=== PATIENT | female | born 1940 | race Caucasian/White ===

== ENCOUNTER → 2017-02-28 | Outpatient (CLI) | payer MEDICARE, BC ==
--- NOTE | 2017-02-28 14:31 | MM ---
Reason for exam: clinical finding. Last mammogram was performed 8 months ago. History: Patient is postmenopausal. Family history of premenopausal breast cancer in sister at age 47. Benign US breast aspiration single LT of the left breast, July 22, 2014. Benign right mammotome panel of the right breast, April 09, 2009. Benign excisional biopsy of the left breast, 1989. Physical Findings: Nurse Summary: 0.5cm nodule in the right breast at 9 o'clock (nurse dw). MG 3D Diag Mammo W/Cad RODOLFO Bilateral CC and MLO view(s) were taken. Prior study comparison: June 26, 2016, bilateral MG screening mammo w CAD. June 24, 2015, bilateral MG diagnostic mammo w CAD RODOLFO. January 04, 2015, bilateral MG diagnostic mammo w CAD RODOLFO. December 26, 2013, bilateral digital screening mammo w/CAD. November 30, 2012, bilateral digital screening mammo w/CAD. There are scattered fibroglandular densities. Previous mammotome biopsy in the right and left breast. There is chronic nodularity in the left breast. There is no discrete abnormality. Palpable marker lateral right periareolar region. These results were verbally communicated with the patient and result sheet given to the patient on 02/28/17. ASSESSMENT: Incomplete: need additional imaging evaluation, BI-RAD 0 RECOMMENDATION: Ultrasound of the right breast.
--- NOTE | 2017-02-28 14:44 | USB ---
Reason for exam: additional evaluation requested from abnormal screening. History: Patient is postmenopausal. Family history of premenopausal breast cancer in sister at age 47. Benign US breast aspiration single LT of the left breast, July 22, 2014. Benign right mammotome panel of the right breast, April 09, 2009. Benign excisional biopsy of the left breast, 1989. US Breast Limited RT Right breast ultrasound demonstrates a 3 x 2 x 3mm oval lesion too small to characterize at 9 o'clock and a 8 x 5 x 7mm irregular, solid, hypoechoic lesion at the posterior nipple. This is towards the 12 o'clock position. Given the patients bloody nipple discharge, biopsy is recommended. These results were verbally communicated with the patient and result sheet given to the patient on 02/28/17. ASSESSMENT: Suspicious, BI-RAD 4 RECOMMENDATION: Surgical consultation and ultrasound core biopsy of the right breast. Consideration can be given to ductogram or MRI in the future if there is occurrence of bloody/clear spontaneous discharge localized to a single pore on the nipple. Called Dr. Martin with mammographic findings. Patient to call on 03/01/17 for appointment time. PRELIMINARY REPORT CALLED AND FAXED TO DR. MARTIN ON 02/28/17 AT 300/TP. [facility]
== END | disposition home or self-care (01) ==
LOC: RADMAMWWP 12:31
PROVIDERS: ATTEND Surgery
DX: R92.8 Other abnormal and inconclusive findings on diagnostic imaging of breast (principal)
CPT/HCPCS: 76642; G0204; G0279

== ENCOUNTER → 2017-03-13 | Day surgery (SDC) | payer MEDICARE, BC ==
[~2017-03-13] MED LIST: ALPRAZolam 0.25 MG TAB ONE; BACITRACIN OINT 1 EACH PACKET TOPICAL ONE; LIDOCAINE 1% INJ 10MG/ML (20 ML MDV) ONE
--- NOTE | 2017-03-13 10:50 | USB ---
EXAMINATION TYPE: US biopsy breast VAD RT DATE OF EXAM: 03/13/2017 10:17 AM CLINICAL HISTORY: R92.8 Abn mammogram. TECHNIQUE: Ultrasound guided core biopsy of right breast. COMPARISON: 02/28/2017 FINDINGS: The procedure of ultrasound guided core biopsy was explained to the patient. Benefits, alternatives, and risks were discussed. An informed consent was then obtained. The patient was placed in supine positioning for imaging and for the procedure. The overlying skin was prepped and draped in usual sterile fashion. Lidocaine buffered with bicarbonate was used as anesthetic into the skin and subcutaneous tissue up to area of concern in the right breast. A yessica was made with surgical scalpel. Under ultrasound guidance, a 12-gauge vacuum assisted biopsy gun device was used to obtain 6 core samples. Following this, a biopsy clip was left in lesion. Some minimal bleeding was evident on ultrasound. Pressure was maintained for hemostasis. No obvious hematoma completion of the examination of hematoma identified on mammogram. The patient tolerated the procedure well without any immediate complication. The patient was kept in the radiology department for short stay after the procedure and then discharged home in stable condition. Postprocedure mammogram was obtained. Clip is in the subareolar region. A second prior study core marker is present IMPRESSION: Successful, uncomplicated ultrasound guided core biopsy of area of concern in the right breast, full pathology results to follow. 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 Recommendation Surgical consult of the right breast. RAYO
--- NOTE | 2017-03-13 10:52 | MM ---
Post procedure mammogram INDICATION: Prior abnormal mammogram and ultrasound Following the completion of the ultrasound core biopsy the patient was sent for mammography for clip placement. Clip is within the subareolar right breast. A previous core marker is within the posterior right [facility]. No large hematomas evident. IMPRESSIONS: 1. Post procedure mammogram for clip placement Recommendations: 1. Recommendations are pending pathology results.
== END ==
LOC: RADUSWWP 06:41
PROVIDERS: ATTEND Surgery
DX: C50.911 Malignant neoplasm of unspecified site of right female breast (principal); R92.8 Other abnormal and inconclusive findings on diagnostic imaging of breast; Z88.1 Allergy status to other antibiotic agents; Z88.8 Allergy status to other drugs, medicaments and biological substances; Z91.09 Other allergy status, other than to drugs and biological substances
CPT/HCPCS: 88305; 88342; 88341; 19083; G0206; A4648; J2001

== ENCOUNTER 2017-03-25 08:58 | Emergency (ER) | payer MEDICARE, BC ==
[2017-03-25] MEDS ORDERED: SODIUM CHLORIDE 0.9% 1,000 ML IV STA (09:25)
[2017-03-25] MEDS ORDERED: ONDANSETRON 4 MG/2 ML VIAL IVP STA (09:26)
--- NOTE | 2017-03-25 09:30 | ED ---
General Adult HPI - General Chief complaint: Abdominal Pain Stated complaint: Right side flank Pain Time Seen by Provider: 03/25/17 09:11 Source: patient, EMS, RN notes reviewed Mode of arrival: EMS - History of Present Illness Initial comments: Patient 77-year-old female who presents emergency room today by EMS, the chief complaint of increased right sided back and abdominal pain. Patient does admit that she began feeling pain approximately one week ago in her back. She states she thought was just a pulled muscle. She states the last few hours it is greatly increased. She states it seems to radiate into the front of the abdomen and the upper portion. She does admit that it's a sharp pain at times it seems to be worse at times with movements. She denies any other associated symptoms. States she has not had a bowel movement which is not unusual for her. She states she thinks it may be constipation. She denies any other complaint or symptoms. Patient denies any recent fever, chills, shortness of breath, chest pain, nausea or vomiting, numbness or tingling, dysuria or hematuria, diarrhea, headaches or visual changes, or any other complaints. - Related Data Home Medications Medication Instructions Recorded Confirmed Levothyroxine Sodium [Synthroid] 44 mcg PO DAILY 07/25/14 08/16/16 Jaycob/D3/Mag11/Zinc/Systems Security Analyst/Danial/Bor 1 tab PO DAILY 08/15/16 08/16/16 [Caltrate 600+D Plus Tablet] Previous Rx's Medication Instructions Recorded Levofloxacin [Levaquin] 500 mg PO DAILY 7 Days 03/25/17 metroNIDAZOLE [Flagyl] 500 mg PO TID 7 Days 03/25/17 Allergies Allergy/AdvReac Type Severity Reaction Status Date / Time iodine Allergy Unknown Verified 08/16/16 11:19 steroids Allergy Unknown Uncoded 08/16/16 11:19 Review of Systems ROS Statement: Those systems with pertinent positive or pertinent negative responses have been documented in the HPI. ROS Other: All systems not noted in ROS Statement are negative. Past Medical History Past Medical History: Diabetes Mellitus, Hyperlipidemia Additional Past Medical History / Comment(s): STATES UNABLE TO TOLERATE MEDS FOR DIABETES AND CHOLESTEROL. HX OF MENIERE'S History of Any Multi-Drug Resistant Organisms: None Reported Past Surgical History: Cholecystectomy Additional Past Surgical History / Comment(s): RODOLFO. CATARACTS Past Anesthesia/Blood Transfusion Reactions: No Reported Reaction Past Psychological History: No Psychological Hx Reported Smoking Status: Never smoker Past Alcohol Use History: None Reported Past Drug Use History: None Reported - Past Family History Sister(s) Family Medical History: Cancer Additional Family Medical History / Comment(s): breast, Brother(s) Family Medical History: Cancer Additional Family Medical History / Comment(s): lung General Exam - General Exam Comments Initial Comments: General: The patient is awake and alert, in no distress, and does not appear acutely ill. Eye: Pupils are equal, round and reactive to light, extra-ocular movements are intact. No nystagmus. There is normal conjunctiva bilaterally. No signs of icterus. Ears, nose, mouth and throat: There are moist mucous membranes and no oral lesions. Neck: The neck is supple, there is no tenderness or JVD. Cardiovascular: There is a regular rate and rhythm. No murmur, rub or gallop is appreciated. Respiratory: Lungs are clear to auscultation, respirations are non-labored, breath sounds are equal. No wheezes, stridor, rales, or rhonchi. Gastrointestinal: Normal appearance abdomen. Normal bowel sounds. Abdomen soft on palpation. Patient does have tenderness epigastric and right upper quadrants. No CVA tenderness. No guarding. No rebound. Musculoskeletal: Normal ROM, no tenderness. Strength 5/5. Sensation intact. Pulses equal bilaterally 2+. Neurological: A&O x 3. CN II-XII intact, There are no obvious motor or sensory deficits. Coordination appears grossly intact. Speech is normal. Skin: Skin is warm and dry and no rashes or lesions are noted. Psychiatric: Cooperative, appropriate mood & affect, normal judgment. Course Vital Signs 03/25/17 09:00 Temperature 98.7 F Pulse Rate 80 Respiratory 20 Rate Blood Pressure 162/70 O2 Sat by Pulse 94 L Oximetry Medical Decision Making - Medical Decision Making Case discussed in detail with attending physician Dr. Fu. Labs reviewed unremarkable. Patient does admit that these symptoms seem to be consistent with some constipation that she's had in the past. States had similar findings. She does not want any pain medication she's been feeling better here in the emergency room without. Patient's CAT scan of the abdomen performed with no contrast due to an iodine ALLERGY. He does reveal possible pneumonia seen in the lower lung ivey. Patient does admit to some cough congestion. No sign for diverticulitis but patient will be started on antibiotics cover for pneumonia was possible diverticulitis. Patient will be discharged home and advised follow-up family doctor the next 1-2 days. Advised return if any symptoms increase or worsen. She states understanding and is in agreement with this plan - Lab Data Result diagrams: 03/25/17 09:09 03/25/17 09:09 Lab Results 03/25/17 03/25/17 03/25/17 Range/Units 09:09 09:09 09:09 WBC 7.3 (3.8-10.6) k/uL RBC 4.23 (3.80-5.40) m/uL Hgb 12.7 (11.4-16.0) gm/dL Hct 38.6 (34.0-46.0) % MCV 91.4 (80.0-100.0) fL MCH 30.1 (25.0-35.0) pg MCHC 33.0 (31.0-37.0) g/dL RDW 12.9 (11.5-15.5) % Plt Count 209 (150-450) k/uL Neutrophils % 70 % Lymphocytes % 23 % Monocytes % 4 % Eosinophils % 1 % Basophils % 0 % Neutrophils # 5.1 (1.3-7.7) k/uL Lymphocytes # 1.7 (1.0-4.8) k/uL Monocytes # 0.3 (0-1.0) k/uL Eosinophils # 0.1 (0-0.7) k/uL Basophils # 0.0 (0-0.2) k/uL PT (9.0-12.0) sec INR (<1.1) APTT (22.0-30.0) sec Sodium 139 (137-145) mmol/L Potassium 4.3 (3.5-5.1) mmol/L Chloride 105 (98-107) mmol/L Carbon Dioxide 27 (22-30) mmol/L Anion Gap 7 mmol/L BUN 17 (7-17) mg/dL Creatinine 0.60 (0.52-1.04) mg/dL Est GFR (MDRD) Af Amer >60 (>60 ml/min/1.73 sqM) Est GFR (MDRD) Non-Af >60 (>60 ml/min/1.73 sqM) Glucose 200 H (74-99) mg/dL Calcium 8.9 (8.4-10.2) mg/dL Magnesium 1.8 (1.6-2.3) mg/dL Total Bilirubin 0.8 (0.2-1.3) mg/dL AST 18 (14-36) U/L ALT 22 (9-52) U/L Alkaline Phosphatase 104 (38-126) U/L Total Creatine Kinase 86 (30-135) U/L CK-MB (CK-2) 0.7 (0.0-2.4) ng/mL CK-MB (CK-2) Rel Index 0.8 Troponin I <0.012 (0.000-0.034) ng/mL Total Protein 7.2 (6.3-8.2) g/dL Albumin 4.0 (3.5-5.0) g/dL Amylase 51 (30-110) U/L Lipase 86 (23-300) U/L Urine Color Urine Appearance (Clear) Urine pH (5.0-8.0) Ur Specific [place] (1.001-1.035) Urine Protein (Negative) Urine Glucose (UA) (Negative) Urine Ketones (Negative) Urine Blood (Negative) Urine Nitrite (Negative) Urine Bilirubin (Negative) Urine Urobilinogen (<2.0) mg/dL Ur Leukocyte Esterase (Negative) Urine RBC (0-5) /hpf Urine WBC (0-5) /hpf Ur Squamous Epith Cells (0-4) /hpf Urine Mucus (None) /hpf 03/25/17 03/25/17 Range/Units 09:09 11:37 WBC (3.8-10.6) k/uL RBC (3.80-5.40) m/uL Hgb (11.4-16.0) gm/dL Hct (34.0-46.0) % MCV (80.0-100.0) fL MCH (25.0-35.0) pg MCHC (31.0-37.0) g/dL RDW (11.5-15.5) % Plt Count (150-450) k/uL Neutrophils % % Lymphocytes % % Monocytes % % Eosinophils % % Basophils % % Neutrophils # (1.3-7.7) k/uL Lymphocytes # (1.0-4.8) k/uL Monocytes # (0-1.0) k/uL Eosinophils # (0-0.7) k/uL Basophils # (0-0.2) k/uL PT 9.9 (9.0-12.0) sec INR 1.0 (<1.1) APTT 25.0 (22.0-30.0) sec Sodium (137-145) mmol/L Potassium (3.5-5.1) mmol/L Chloride (98-107) mmol/L Carbon Dioxide (22-30) mmol/L Anion Gap mmol/L BUN (7-17) mg/dL Creatinine (0.52-1.04) mg/dL Est GFR (MDRD) Af Amer (>60 ml/min/1.73 sqM) Est GFR (MDRD) Non-Af (>60 ml/min/1.73 sqM) Glucose (74-99) mg/dL Calcium (8.4-10.2) mg/dL Magnesium (1.6-2.3) mg/dL Total Bilirubin (0.2-1.3) mg/dL AST (14-36) U/L ALT (9-52) U/L Alkaline Phosphatase (38-126) U/L Total Creatine Kinase (30-135) U/L CK-MB (CK-2) (0.0-2.4) ng/mL CK-MB (CK-2) Rel Index Troponin I (0.000-0.034) ng/mL Total Protein (6.3-8.2) g/dL Albumin (3.5-5.0) g/dL Amylase (30-110) U/L Lipase (23-300) U/L Urine Color Light Yellow Urine Appearance Clear (Clear) Urine pH 5.0 (5.0-8.0) Ur Specific [place] 1.007 (1.001-1.035) Urine Protein Negative (Negative) Urine Glucose (UA) Negative (Negative) Urine Ketones Negative (Negative) Urine Blood Small H (Negative) Urine Nitrite Negative (Negative) Urine Bilirubin Negative (Negative) Urine Urobilinogen <2.0 (<2.0) mg/dL Ur Leukocyte Esterase Negative (Negative) Urine RBC 1 (0-5) /hpf Urine WBC <1 (0-5) /hpf Ur Squamous Epith Cells <1 (0-4) /hpf Urine Mucus Rare H (None) /hpf Disposition Clinical Impression: Community acquired pneumonia, Abdominal pain Disposition: HOME SELF-CARE Condition: Good Instructions: Abdominal Pain (ED) Additional Instructions: Please use medication as discussed. Please follow-up with family doctor in the next 2 days. Please return to emergency room if the symptoms increase or worsen or for any other concerns. Prescriptions: Levofloxacin [Levaquin] 500 mg PO DAILY 7 Days metroNIDAZOLE [Flagyl] 500 mg PO TID 7 Days Referrals: Marcello Castro MD [Primary Care Provider] - 1-2 days Time of Disposition: 12:08
[2017-03-25] MEDS: HYDROmorphone 1 MG/ML 1 ML SYRINGE IVP STA ×2 (09:34→09:40)
[2017-03-25 09:48] LABS: Basophils % (A) 0 %; CH 29.9; CHCM 32.8; Eosinophils # (A) 0.1 k/uL (0-0.7); Eosinophils % (A) 1 %; HCT 38.6 % (34.0-46.0); HDW 2.51; HGB 12.7 gm/dL (11.4-16.0); Luc # (Auto) 0.11; Luc % (Auto) 2; Lymphocytes # (A) 1.7 k/uL (1.0-4.8); Lymphocytes % (A) 23 %; MCH 30.1 pg (25.0-35.0); MCV 91.4 fL (80.0-100.0); Monocytes # (A) 0.3 k/uL (0-1.0); Monocytes % (A) 4 %; Neutrophils # (A) 5.1 k/uL (1.3-7.7); Neutrophils % (A) 70 %; RBC 4.23 m/uL (3.80-5.40); RDW 12.9 % (11.5-15.5); WBC 7.3 k/uL (3.8-10.6); WBC (Perox) 7.24
[2017-03-25 09:57] LABS: Prothrombin Time 9.9 sec (9.0-12.0)
[2017-03-25 09:58] LABS: ALT 22 U/L (9-52); AST 18 U/L (14-36); Alkaline Phosphatase 104 U/L (38-126); Amylase 51 U/L (30-110); Anion Gap 7 mmol/L; Blood Urea Nitrogen 17 mg/dL (7-17); Calcium 8.9 mg/dL (8.4-10.2); Carbon Dioxide 27 mmol/L (22-30); Chloride 105 mmol/L (98-107); Glucose 200 mg/dL (74-99); Magnesium 1.8 mg/dL (1.6-2.3); Non-African American GFR(MDRD) >60 (>60 ml/min/1.73 sqM); Potassium 4.3 mmol/L (3.5-5.1); Sodium 139 mmol/L (137-145); Total Bilirubin 0.8 mg/dL (0.2-1.3); Total Protein 7.2 g/dL (6.3-8.2)
--- NOTE | 2017-03-25 10:09 | XR ---
EXAMINATION TYPE: XR chest 2V DATE OF EXAM: 03/25/2017 COMPARISON: Prior chest x-ray for September 2014 HISTORY: Chest pain TECHNIQUE: Frontal and lateral views of the chest are obtained. FINDINGS: Patient is rotated, there are overlying cardiac leads. Exam is expiratory. No evident pneu mothorax or pleural effusion. Patchy basilar density is present. Cardiac mediastinal silhouette shows an accentuated heart size which could be due to technique. Pulmonary vascularity and rajeev not signif icantly changed accounting for differences in technique IMPRESSION: Rotated expiratory exam. Basilar atelectasis, follow-up as indicated.
--- NOTE | 2017-03-25 10:10 | XR ---
Abdomen HISTORY: Constipation, right lower quadrant pain, flank pain Frontal view of the abdomen submitted on 2 images. Patchy basilar density present at the lung bases. Surgical clips present in the right upper quadrant. No pneumoperitoneum or bowel obstruction evident. Degenerative disc changes in the visualized lumbar spine. Some retained fecal debris present within the distribution of the colon. IMPRESSION: Nonobstructive bowel gas pattern. Follow-up as indicated.
[2017-03-25 10:21] LABS: Creatine Kinase 86 U/L (30-135)
[2017-03-25 10:33] LABS: Creatine Kinase MB 0.7 ng/mL (0.0-2.4); Troponin I <0.012 ng/mL (0.000-0.034)
--- NOTE | 2017-03-25 11:31 | CT ---
EXAMINATION TYPE: CT abdomen pelvis wo con DATE OF EXAM: 03/25/2017 COMPARISON: Abdomen same date HISTORY: Rt flank pain CT DLP: 429.1 mGycm Automated exposure control for dose reduction was used. TECHNIQUE: Helical acquisition of images from the lung bases through the pelvis. FINDINGS: Lack of intravenous contrast could compromise sensitivity. LUNG BASES: Patchy increased density is present right greater than left, correlate to exclude pneumon ia. There is no pleural or pericardial effusion. Suspect mitral annular calcification. There may be a small hiatal hernia. AORTA: No significant abnormality is appreciated. LIVER/GB: Liver is unremarkable, patient is post cholecystectomy PANCREAS: No significant abnormality is seen. SPLEEN: No significant abnormality is seen. ADRENALS: No significant abnormality is seen. KIDNEYS: No significant abnormality is seen. REPRODUCTIVE ORGANS: No significant abnormality is seen. URINARY BLADDER: No significant abnormality is seen. BOWEL: Diverticular changes associated with the sigmoid colon. Small inguinal hernia shows some asso ciated fluid density measuring 18 mm which is indeterminate in the right inguinal region along the in guinal canal. FREE AIR: No Free Air is visible. ASCITES: None visible. PELVIC ADENOPATHY: None visualized. RETROPERITONEAL ADENOPATHY: No Retroperitoneal Adenopathy visible. OSSEOUS STRUCTURES: Degenerative disc changes are present in the visualized spine. There is facet ar thropathy at the lower lumbar spine. IMPRESSION: RIGHT INGUINAL HERNIA, SMALL AMOUNT OF FLUID MAY BE PRESENT ALONG THE INGUINAL CANAL. NONCONTRAST EXA M. POSTOP CHANGES. CORRELATE TO EXCLUDE PNEUMONIA. SMALL HIATAL HERNIA. DIVERTICULOSIS. FOLLOW-UP INDICATED.
[2017-03-25 12:08] LABS: Appearance,Urine Clear (Clear); Bilirubin,Urine Negative (Negative); Glucose,Urine (UA) Negative (Negative); Ketones,Urine Negative (Negative); Leukocyte Esterase,Urine Negative (Negative); Mucus,Urine Rare /hpf; Nitrite,Urine Negative (Negative); Particle Count 1796; Protein,Urine Negative (Negative); RBC,Urine 1 /hpf (0-5); Specific Gravity,Urine 1.007 (1.001-1.035); Squamous Epithelial Cell,Urine <1 /hpf (0-4); UA Billing (MACRO vs. MICRO) MICRO; Urobilinogen,Urine <2.0 mg/dL (<2.0); WBC,Urine <1 /hpf (0-5)
[2017-03-25] MEDS ORDERED: MAGNESIUM CITRATE 296 ML BOTTLE PO ONE (12:19)
[2017-03-25 12:34] VITALS: BP 157/63; PULSE 58; RESP 16; TEMP 97.5
== END 2017-03-25 12:41 | disposition home or self-care (01) ==
LOC: EC 08:58
DX: J18.9 Pneumonia, unspecified organism (principal); R10.11 Right upper quadrant pain; R10.13 Epigastric pain; Z53.20 Procedure and treatment not carried out because of patient's decision for unspecified reasons; Z79.899 Other long term (current) drug therapy; Z88.8 Allergy status to other drugs, medicaments and biological substances; Z90.49 Acquired absence of other specified parts of digestive tract
CPT/HCPCS: 36415; 71020; 74000; 74176; 80053; 81001; 82150; 82550; 82553; 83690; 83735; 84484; 85025; 85610; 85730; 93005; 96360; 99285

== ENCOUNTER → 2017-04-02 | Outpatient (CLI) | payer MEDICARE, BC ==
--- NOTE | 2017-04-02 10:39 | XR ---
EXAMINATION TYPE: XR chest 2V DATE OF EXAM: 04/02/2017 HISTORY: J18.9 pneumonia. REFERENCE: Previous study dated 03/25/2017. FINDINGS: The lungs are clear. Pleural spaces are clear. The heart is not enlarged. There is hypertrophic spondylosis within the spine. IMPRESSION: NO ACTIVE INTRATHORACIC ABNORMALITY.
== END | disposition home or self-care (01) ==
LOC: RADXRMAIN 10:20
PROVIDERS: ATTEND Internal Medicine
DX: J18.9 Pneumonia, unspecified organism (principal)
CPT/HCPCS: 71020

== ENCOUNTER → 2017-11-05 | Outpatient (CLI) | payer MEDICARE, BC ==
--- NOTE | 2017-11-05 12:08 | MM ---
Reason for exam: follow-up at short interval from prior study. Last mammogram was performed 8 months ago. History: Patient is postmenopausal and has history of breast cancer at age 77. Family history of premenopausal breast cancer in sister at age 47. Malignant US biopsy breast VAD RT of the right breast, March 13, 2017. Benign US breast aspiration single LT of the left breast, July 22, 2014. Benign right mammotome panel of the right breast, April 09, 2009. Benign excisional biopsy of the left breast, 1989. Physical Findings: Nurse did not find any significant physical abnormalities on exam. MG 3D Diag Mammo W/Cad RODOLFO Bilateral CC and MLO view(s) were taken. Prior study comparison: March 13, 2017, right breast MG diagnostic mammo RT wo CAD. February 28, 2017, bilateral MG 3d diag mammo w/cad RODOLFO. June 26, 2016, bilateral MG screening mammo w CAD. June 24, 2015, bilateral MG diagnostic mammo w CAD RODOLFO. The breast tissue is heterogeneously dense. This may lower the sensitivity of mammography. There are benign appearing round, oval, circumscribed bilateral masses similar to 2016 exam, right contains biopsy marker. No suspicious abnormality. Post therapy change on the right breast. These results were verbally communicated with the patient and result sheet given to the patient on 11/05/17. ASSESSMENT: Benign, BI-RAD 2 RECOMMENDATION: Routine screening mammogram of both breasts in 1 year.
== END | disposition home or self-care (01) ==
LOC: RADMAMWWP 09:58
PROVIDERS: ATTEND Internal Medicine
DX: Z08 Encounter for follow-up examination after completed treatment for malignant neoplasm (principal); Z85.3 Personal history of malignant neoplasm of breast
CPT/HCPCS: 77066; G0279

== ENCOUNTER → 2017-12-17 | Outpatient (CLI) | payer MEDICARE, BC | END | disposition home or self-care (01) | LOC: LABPRL 14:43 | PROVIDERS: ATTEND Nurse Practitioner Family | DX: R19.7 Diarrhea, unspecified (principal) | CPT/HCPCS: 87045; 87046; 87324; 87328; 87329 ==

== ENCOUNTER 2018-03-29 17:28 | Inpatient (IN) | payer MEDICARE, BC ==
[2018-03-29] MEDS ORDERED: ONDANSETRON 4 MG/2 ML VIAL IVP STA ×2 (17:54→18:40)
[2018-03-29] MEDS ORDERED: MECLIZINE 12.5 MG TAB PO STA (17:54)
[2018-03-29 17:55] LABS: Glucose,Whole Blood 139 mg/dL (75-99)
--- NOTE | 2018-03-29 18:01 | ED ---
General Adult HPI - General Chief complaint: Dizziness Stated complaint: Dizzy/Headache Time Seen by Provider: 03/29/18 17:48 Source: patient, RN notes reviewed, old records reviewed Mode of arrival: wheelchair Limitations: no limitations - History of Present Illness Initial comments: 78-year-old female history of Mnire's disease presents for evaluation of lightheadedness, vertigo, and nausea. She has several episodes vomiting. Denies tinnitus. Denies recent URI symptoms. Symptoms began approximately 4 PM. She denies any new pain or fullness. Denies any recent URI symptoms. Denies chest pain or shortness of breath. Denies any focal weakness or numbness. Denies abdominal pain, she does have nausea. Patient states her symptoms are different from her Mnire's disease. She also reports mild headache.. She feels as though she is going to fall to the left. She did report some gait instability. - Related Data Home Medications Medication Instructions Recorded Confirmed Levothyroxine Sodium [Synthroid] 88 mcg PO DAILY 07/25/14 03/29/18 Jaycob/D3/Mag11/Zinc/Syrup Blender/Danial/Bor 1 tab PO DAILY 08/15/16 03/29/18 [Caltrate 600+D Plus Tablet] Glimepiride [Amaryl] 2 mg PO BID 03/29/18 03/29/18 Repaglinide [Prandin] 0.5 mg PO AC-TID 03/29/18 03/29/18 Allergies Allergy/AdvReac Type Severity Reaction Status Date / Time iodine Allergy Unknown Verified 03/29/18 19:02 steroids Allergy Unknown Uncoded 03/29/18 17:44 Review of Systems ROS Statement: Those systems with pertinent positive or pertinent negative responses have been documented in the HPI. ROS Other: All systems not noted in ROS Statement are negative. Past Medical History Past Medical History: Diabetes Mellitus, Hyperlipidemia Additional Past Medical History / Comment(s): STATES UNABLE TO TOLERATE MEDS FOR DIABETES AND CHOLESTEROL. HX OF MENIERE'S History of Any Multi-Drug Resistant Organisms: None Reported Past Surgical History: Cholecystectomy Additional Past Surgical History / Comment(s): RODOLFO. CATARACTS Past Anesthesia/Blood Transfusion Reactions: No Reported Reaction Past Psychological History: No Psychological Hx Reported Smoking Status: Never smoker Past Alcohol Use History: None Reported Past Drug Use History: None Reported - Past Family History Sister(s) Family Medical History: Cancer Additional Family Medical History / Comment(s): breast, Brother(s) Family Medical History: Cancer Additional Family Medical History / Comment(s): lung General Exam Limitations: no limitations General appearance: alert, in no apparent distress Head exam: Present: atraumatic, normocephalic Eye exam: Present: normal appearance, PERRL, EOMI. Absent: nystagmus ENT exam: Present: normal exam. Absent: mucous membranes dry Neck exam: Present: normal inspection. Absent: tenderness, meningismus Respiratory exam: Present: normal lung sounds bilaterally. Absent: respiratory distress Cardiovascular Exam: Present: regular rate, normal rhythm GI/Abdominal exam: Present: soft. Absent: distended, tenderness Extremities exam: Present: normal inspection, normal capillary refill. Absent: pedal edema Neurological exam: Present: alert, oriented X3, CN II-XII intact, other ( there is bilateral upper extremity tremor, finger to nose is normal, [id number] normal). Absent: motor sensory deficit Skin exam: Present: warm, dry, intact. Absent: cyanosis, diaphoretic Course Vital Signs 03/29/18 03/29/18 17:39 19:05 Temperature 98.7 F Pulse Rate 67 64 Respiratory 20 18 Rate Blood Pressure 188/87 193/82 O2 Sat by Pulse 99 96 Oximetry EKG Findings - EKG Comments: EKG Findings:: EKG: Normal sinus rhythm, rate of 65, NM interval 190, QRS duration 94, QTC 422 Medical Decision Making - Medical Decision Making 78-year-old female presenting with symptoms of vertigo. Patient does report a sensation she is falling to the left. She is initially very uncomfortable, vomiting. History of Mnire's disease although she states this is dissimilar to her previous vertigo. She hasn't baseline tremor of the upper extremities, no noted ataxia on exam. Head CT is obtained which is negative for intracranial hemorrhage or mass effect. Laboratory studies are within normal limits. Patient remains quite symptomatic with nausea and vomiting. Blood pressure is elevated and patient does not have history of hypertension. There is concern for posterior stroke. CT angiography is obtained at the recommendation of Dr. Arechiga. This is pending currently. Case discussed with Dr. Arechiga who will accept admission. Neurology will be placed on consult. Patient is given an aspirin. Diagnosis: Vertigo - Lab Data Result diagrams: 03/29/18 18:14 03/29/18 18:14 Lab Results 03/29/18 03/29/18 03/29/18 Range/Units 17:54 18:14 18:14 WBC 7.7 (3.8-10.6) k/uL RBC 4.58 (3.80-5.40) m/uL Hgb 13.4 (11.4-16.0) gm/dL Hct 40.1 (34.0-46.0) % MCV 87.5 (80.0-100.0) fL MCH 29.3 (25.0-35.0) pg MCHC 33.4 (31.0-37.0) g/dL RDW 12.8 (11.5-15.5) % Plt Count 201 (150-450) k/uL Neutrophils % 63 % Lymphocytes % 28 % Monocytes % 5 % Eosinophils % 1 % Basophils % 0 % Neutrophils # 4.8 (1.3-7.7) k/uL Lymphocytes # 2.2 (1.0-4.8) k/uL Monocytes # 0.4 (0-1.0) k/uL Eosinophils # 0.1 (0-0.7) k/uL Basophils # 0.0 (0-0.2) k/uL PT (9.0-12.0) sec INR (<1.2) Sodium 141 (137-145) mmol/L Potassium 4.6 (3.5-5.1) mmol/L Chloride 104 (98-107) mmol/L Carbon Dioxide 26 (22-30) mmol/L Anion Gap 11 mmol/L BUN 18 H (7-17) mg/dL Creatinine 0.60 (0.52-1.04) mg/dL Est GFR (CKD-EPI)AfAm >90 (>60 ml/min/1.73 sqM) Est GFR (CKD-EPI)NonAf 87 (>60 ml/min/1.73 sqM) Glucose 140 H (74-99) mg/dL POC Glucose (mg/dL) 139 H (75-99) mg/dL POC Glu Registered Private Duty Nurse ID D[place]more, Antionette Plasma Lactic Acid Elias (0.7-2.0) mmol/L Calcium 10.0 (8.4-10.2) mg/dL Total Bilirubin 0.5 (0.2-1.3) mg/dL AST 23 (14-36) U/L ALT 22 (9-52) U/L Alkaline Phosphatase 87 (38-126) U/L Troponin I (0.000-0.034) ng/mL Total Protein 7.3 (6.3-8.2) g/dL Albumin 4.2 (3.5-5.0) g/dL 03/29/18 03/29/18 03/29/18 Range/Units 18:14 18:14 18:14 WBC (3.8-10.6) k/uL RBC (3.80-5.40) m/uL Hgb (11.4-16.0) gm/dL Hct (34.0-46.0) % MCV (80.0-100.0) fL MCH (25.0-35.0) pg MCHC (31.0-37.0) g/dL RDW (11.5-15.5) % Plt Count (150-450) k/uL Neutrophils % % Lymphocytes % % Monocytes % % Eosinophils % % Basophils % % Neutrophils # (1.3-7.7) k/uL Lymphocytes # (1.0-4.8) k/uL Monocytes # (0-1.0) k/uL Eosinophils # (0-0.7) k/uL Basophils # (0-0.2) k/uL PT 10.0 (9.0-12.0) sec INR 1.0 (<1.2) Sodium (137-145) mmol/L Potassium (3.5-5.1) mmol/L Chloride (98-107) mmol/L Carbon Dioxide (22-30) mmol/L Anion Gap mmol/L BUN (7-17) mg/dL Creatinine (0.52-1.04) mg/dL Est GFR (CKD-EPI)AfAm (>60 ml/min/1.73 sqM) Est GFR (CKD-EPI)NonAf (>60 ml/min/1.73 sqM) Glucose (74-99) mg/dL POC Glucose (mg/dL) (75-99) mg/dL POC Glu Registered Private Duty Nurse ID Plasma Lactic Acid Elias 0.7 (0.7-2.0) mmol/L Calcium (8.4-10.2) mg/dL Total Bilirubin (0.2-1.3) mg/dL AST (14-36) U/L ALT (9-52) U/L Alkaline Phosphatase (38-126) U/L Troponin I <0.012 (0.000-0.034) ng/mL Total Protein (6.3-8.2) g/dL Albumin (3.5-5.0) g/dL Disposition Clinical Impression: Meniere's disease, Vertigo Disposition: ADMITTED IP TO THIS HOSP Condition: Stable Is patient prescribed a controlled substance at d/c from ED?: No Referrals: Gauri Caballero MD [Primary Care Provider] - 1-2 days Decision to Admit Reason: Admit from EC Decision Date: 03/29/18 Decision Time: 21:24
[2018-03-29 18:35] LABS: ALT 22 U/L (9-52); AST 23 U/L (14-36); Albumin 4.2 g/dL (3.5-5.0); Alkaline Phosphatase 87 U/L (38-126); Anion Gap 11 mmol/L; Blood Urea Nitrogen 18 mg/dL (7-17); Carbon Dioxide 26 mmol/L (22-30); Chloride 104 mmol/L (98-107); Glucose 140 mg/dL (74-99); Potassium 4.6 mmol/L (3.5-5.1); Sodium 141 mmol/L (137-145); Total Bilirubin 0.5 mg/dL (0.2-1.3); Total Protein 7.3 g/dL (6.3-8.2)
[2018-03-29] MEDS ORDERED: LORazepam 2 MG/ML INJ IV STA (18:40)
[2018-03-29 18:44] LABS: Basophils % (A) 0 %; Eosinophils # (A) 0.1 k/uL (0-0.7); Eosinophils % (A) 1 %; HCT 40.1 % (34.0-46.0); HGB 13.4 gm/dL (11.4-16.0); Lymphocytes # (A) 2.2 k/uL (1.0-4.8); Lymphocytes % (A) 28 %; MCH 29.3 pg (25.0-35.0); MCHC 33.4 g/dL (31.0-37.0); MCV 87.5 fL (80.0-100.0); Mean Platelet Volume 6.9; Monocytes # (A) 0.4 k/uL (0-1.0); Monocytes % (A) 5 %; Neutrophils # (A) 4.8 k/uL (1.3-7.7); Neutrophils % (A) 63 %; Platelet Count 201 k/uL (150-450); RBC 4.58 m/uL (3.80-5.40); RDW 12.8 % (11.5-15.5); WBC 7.7 k/uL (3.8-10.6)
--- NOTE | 2018-03-29 19:07 | XR ---
EXAMINATION TYPE: XR chest 2V DATE OF EXAM: 03/29/2018 COMPARISON: Chest x-ray April 02, 2017 HISTORY: Syncope and weakness. TECHNIQUE: Frontal and lateral views of the chest are obtained. FINDINGS: There is some chronic parenchymal change with patchy left basilar atelectasis and/or infil trate. No large pleural effusion or pneumothorax is seen bilaterally. The cardiac silhouette size is upper limits of normal with atherosclerotic aorta. Multilevel spurring in the spine is present. Chol ecystectomy clips are seen. IMPRESSION: Patchy left basilar atelectasis and/or infiltrate.
--- NOTE | 2018-03-29 19:08 | CT ---
EXAMINATION TYPE: CT brain wo con DATE OF EXAM: 03/29/2018 HISTORY: DIZZINESS AND NAUSEA CT DLP: 1079 mGycm. Automated Exposure Control for Dose Reduction was Utilized. TECHNIQUE: CT scan of the head is performed without contrast. COMPARISON: None. FINDINGS: There is no acute intracranial hemorrhage or midline shift identified. There is diffuse v entricular and sulcal prominence consistent with diffuse age-related cerebral atrophy. Garza-white mat ter differentiation is fairly well preserved. Neither lens is well seen. Visualized paranasal sinuses are clear. No suspicious opacification mastoid air cells is present IMPRESSION: No acute intracranial hemorrhage or midline shift. There is mild diffuse age-related ce rebral atrophy noted.
[2018-03-29] MEDS ORDERED: ASPIRIN 325 MG TAB PO STA (21:02)
[2018-03-29] MEDS ORDERED: NALOXONE 0.4 MG/ML 1 ML VIAL IV PRN (21:27)
[2018-03-29] MEDS ORDERED: amLODIPine 5 MG TAB PO STA (21:29)
[2018-03-29] MEDS ORDERED: diphenhydrAMINE 50 MG/ML 1 ML VIAL IVP STA (21:30)
[2018-03-29] MEDS ORDERED: FAMOTIDINE 20 MG/2 ML VIAL IV STA (21:30)
[2018-03-29] MEDS ORDERED: methylPREDNISolone SOD SUCCI 125 MG/2 ML VIAL IV STA (21:30)
[2018-03-29] MEDS ORDERED: SODIUM CHLORIDE 0.9% 500 ML IV ONE (22:04)
--- NOTE | 2018-03-29 22:26 | CT ---
EXAM: CT Angiography Head With Intravenous Contrast CLINICAL HISTORY: Pain TECHNIQUE: Axial computed tomographic angiography images of the head with intravenous contrast using CT angiography protocol. CTDI is 6.5, 69.3, 6. 2 mGy and DLP is 243.9 mGy-cm. This CT exam was performed using one or more of the following dose reduction techniques: automated exposure control, adjustment of the mA and/or kV according to patient size, and/or use of iterative reconstruction technique. MIP reconstructed images were created and reviewed. COMPARISON: No relevant prior studies available. FINDINGS: HEAD: Right anterior cerebral artery: Unremarkable. No occlusion or significant stenosis. No aneurysm. Right middle cerebral artery: Unremarkable. No occlusion or significant stenosis. No aneurysm. Right posterior cerebral artery: Unremarkable. No occlusion or significant stenosis. No aneurysm. Left anterior cerebral artery: Unremarkable. No occlusion or significant stenosis. No aneurysm. Left middle cerebral artery: Unremarkable. No occlusion or significant stenosis. No aneurysm. Left posterior cerebral artery: Unremarkable. No occlusion or significant stenosis. No aneurysm. Basilar artery: Unremarkable. No occlusion or significant stenosis. No aneurysm. CAROTID STENOSIS REFERENCE USING NASCET CRITERIA: % ICA stenosis = (1 - narrowest ICA diameter/diameter of distal cervical ICA) x 100. Mild - <50% stenosis. Moderate - 50-69% stenosis. Severe - 70-94% stenosis. Near occlusion - 95-99% stenosis. Occluded - 100% stenosis. IMPRESSION: No acute findings in the arteries of the head. EXAM: CT Angiography Neck With Intravenous Contrast CLINICAL HISTORY: Pain TECHNIQUE: Axial computed tomographic angiography images of the neck with intravenous contrast using CT angiography protocol. CTDI is 6.5, 69.3, 6. 2 mGy and DLP is 243.9 mGy-cm. This CT exam was performed using one or more of the following dose reduction techniques: automated exposure control, adjustment of the mA and/or kV according to patient size, and/or use of iterative reconstruction technique. MIP reconstructed images were created and reviewed. COMPARISON: No relevant prior studies available. FINDINGS: VASCULATURE: Right common carotid artery: Unremarkable. No significant stenosis. No dissection or occlusion. Right internal carotid artery: Unremarkable. Extracranial segment is patent with no significant stenosis. No dissection or occlusion. Right external carotid artery: Unremarkable. No occlusion. Right vertebral artery: Unremarkable. No significant stenosis. No dissection or occlusion. Left common carotid artery: Minimal calcific atherosclerotic disease. No significant stenosis. No dissection or occlusion. Left internal carotid artery: Unremarkable. Extracranial segment is patent with no significant stenosis. No dissection or occlusion. Left external carotid artery: Unremarkable. No occlusion. Left vertebral artery: Unremarkable. No significant stenosis. No dissection or occlusion. NECK: Bones/joints: No acute fracture. No dislocation. Soft tissues: Unremarkable as visualized. No mass. CAROTID STENOSIS REFERENCE USING NASCET CRITERIA: % ICA stenosis = (1 - narrowest ICA diameter/diameter of distal cervical ICA) x 100. Mild - <50% stenosis. Moderate - 50-69% stenosis. Severe - 70-94% stenosis. Near occlusion - 95-99% stenosis. Occluded - 100% stenosis. IMPRESSION: Normal neck CTA.
[2018-03-29] MEDS ORDERED: hydrALAZINE HCL 20 MG/ML 1 ML VIAL IVP STA (22:30)
[2018-03-29 23:51] VITALS: BMI 25.6
[2018-03-29] MEDS: SODIUM CHLORIDE 0.9% 1,000 ML IV SCH (23:56)
[2018-03-30] MEDS ORDERED: hydrALAZINE HCL 20 MG/ML 1 ML VIAL ONE (00:04)
[2018-03-30 00:08] LABS: Glucose,Whole Blood 213 mg/dL (75-99)
[2018-03-30 00:42] LABS: Appearance,Urine Clear (Clear); Bilirubin,Urine Negative (Negative); Blood,Urine Negative (Negative); Color,Urine Colorless; Glucose,Urine (UA) Negative (Negative); Ketones,Urine Negative (Negative); Leukocyte Esterase,Urine Negative (Negative); Nitrite,Urine Negative (Negative); Protein,Urine Negative (Negative); Specific Gravity,Urine 1.006 (1.001-1.035); Urobilinogen,Urine <2.0 mg/dL (<2.0)
[2018-03-30 06:20] LABS: Glucose,Whole Blood 281 mg/dL (75-99)
[2018-03-30] MEDS: INSULIN ASPART 100 UNIT/ML 1 ML 10 ML VIAL SQ SCH ×4 (06:25→21:32)
[2018-03-30] MEDS: ASPIRIN 325 MG TAB PO SCH (08:07)
[2018-03-30] MEDS: amLODIPine 5 MG TAB PO SCH (08:07)
[2018-03-30 11:41] LABS: Glucose,Whole Blood 365 mg/dL (75-99)
[2018-03-30] MEDS: SODIUM CHLORIDE 0.9% 1,000 ML IV SCH (12:08)
[2018-03-30] MEDS: GLIMEPIRIDE 2 MG TAB PO SCH ×2 (12:20→17:24)
[2018-03-30] MEDS: REPAGLINIDE 1 MG TAB PO SCH ×2 (12:20→17:24)
[2018-03-30] MEDS: LEVOTHYROXINE 88 MCG TAB PO SCH (12:20)
[2018-03-30 13:44] LABS: Hemoglobin A1C 8.4 % (4.0-6.0)
[2018-03-30] MEDS ORDERED: methylPREDNISolone SOD SUCCI 40 MG/ML 1 ML VIAL IV STA (15:11)
[2018-03-30] MEDS ORDERED: MECLIZINE 12.5 MG TAB PO PRN (15:13)
[2018-03-30 15:19] LABS: Glucose,Whole Blood 353 mg/dL (75-99)
[2018-03-30] MEDS ORDERED: DIAZEPAM 5 MG TAB PO PRN (15:39)
[2018-03-30 16:56] LABS: Glucose,Whole Blood 304 mg/dL (75-99)
--- NOTE | 2018-03-30 17:40 | P.CNNES ---
History of Present Illness Consult date: 03/30/18 Reason for Consult: Patient admitted with dizziness and posterior circulation TIA. History of Present Illness: This patient is a 78-year-old right-handed white female who has a long-standing history of Mnire's disease and diabetes mellitus. Apparently in the last 2 days she has been having symptoms of disequilibrium and difficulty with ambulation. She states that this is different from her typical Mnire's disease which has been under fairly good control over the years. She was diagnosed with Mnire's disease about 5 years ago. She is not on any specific medication or treatment. Apparently her symptoms began yesterday afternoon and did not seem to improve. She had difficulty with her balance and just could not ambulate due to the sudden onset of disequilibrium. According to her who was able to assist her and also noted that she had some left-sided facial droop. There was no slurring of her speech or headaches reported during the event. It is unclear how long the facial droop lasted but the patient thinks it was only for short period of time. When the patient stood up and tried to ambulate she felt as if she was being pulled to her left side. She describes this more as a sense of balance rather than weakness on her left arm and leg. She did have only mild headache but family was concerned and decided to bring her to the emergency room yesterday for further evaluation. She was seen in the ER by Dr. Hay. She continued to experience vertigo and dizziness which she describes more of a sense of dysequilibrium rather than true vertigo. Her speech was clear in the ER. She does have history of diabetes mellitus and apparently her blood sugars have been up and down. She states her most recent hemoglobin A1c was 7.8. The patient was evaluated in the ER by Dr. Hay. She was sent for a computed tomography scan of the brain which revealed no acute intracranial hemorrhage or midline shift. There was mild diffuse age-related atrophy noted. Patient also underwent a CTA angiogram of the head and neck which was reported negative for any significant stenosis. Patient states that typically when she experiencing her Mnire's symptoms it is usually associated with tinnitus. She usually describes this as a true spinning sensation. Her symptoms yesterday were more consistent with dysequilibrium and balance difficulties with her gait. The patient does not take aspirin on any regular basis. She denies any previous history of TIA or stroke. She is now been admitted and neurology has been consulted for further evaluation and recommendations. Review of Systems Constitutional: Denies chills, Denies fever Eyes: denies blurred vision, denies pain Ears, nose, mouth and throat: Denies headache, Denies sore throat Cardiovascular: Denies chest pain, Denies shortness of breath Respiratory: Denies cough Gastrointestinal: Denies abdominal pain, Denies diarrhea, Denies nausea, Denies vomiting Musculoskeletal: Denies myalgias Integumentary: Denies pruritus, Denies rash Neurological: Reports gait dysfunction, Reports vertigo, Denies numbness, Denies weakness Psychiatric: Denies anxiety, Denies depression Endocrine: Denies fatigue, Denies weight change Past Medical History Past Medical History: Diabetes Mellitus, Hyperlipidemia Additional Past Medical History / Comment(s): STATES UNABLE TO TOLERATE MEDS FOR DIABETES AND CHOLESTEROL. HX OF MENIERE'S History of Any Multi-Drug Resistant Organisms: None Reported Past Surgical History: Cholecystectomy Additional Past Surgical History / Comment(s): RODOLFO. CATARACTS Past Anesthesia/Blood Transfusion Reactions: No Reported Reaction Past Psychological History: No Psychological Hx Reported Smoking Status: Never smoker Past Alcohol Use History: None Reported Past Drug Use History: None Reported - Past Family History Sister(s) Family Medical History: Cancer Additional Family Medical History / Comment(s): breast, Brother(s) Family Medical History: Cancer Additional Family Medical History / Comment(s): lung Medications and Allergies Home Medications Medication Instructions Recorded Confirmed Type Levothyroxine Sodium [Synthroid] 88 mcg PO DAILY 07/25/14 03/29/18 History Jaycob/D3/Mag11/Zinc/Youth Program Director/Danial/Bor 1 tab PO DAILY 08/15/16 03/29/18 History [Caltrate 600+D Plus Tablet] Glimepiride [Amaryl] 2 mg PO BID 03/29/18 03/29/18 History Repaglinide [Prandin] 0.5 mg PO AC-TID 03/29/18 03/29/18 History Allergies Allergy/AdvReac Type Severity Reaction Status Date / Time iodine Allergy Unknown Verified 03/29/18 19:02 steroids Allergy Unknown Uncoded 03/29/18 17:44 Physical Examination - Vital Signs Vital Signs: Vital Signs Temp Pulse Pulse Resp BP BP Pulse Ox 03/30/18 11:35 97.6 F 87 18 151/77 90 L 03/30/18 08:33 92 L 03/30/18 08:07 97.5 F L 89 18 130/60 92 L 03/30/18 05:32 87 16 132/60 94 L 03/30/18 04:00 78 16 03/30/18 00:03 78 16 141/74 95 03/30/18 00:00 78 16 03/29/18 23:01 77 20 179/71 95 03/29/18 22:00 68 20 199/79 96 03/29/18 21:00 72 20 190/79 90 L 03/29/18 19:05 64 18 193/82 96 03/29/18 17:39 98.7 F 67 20 188/87 99 Intake and Output 03/29/18 03/30/18 03/30/18 22:59 06:59 14:59 Intake Total 480 400 118 Balance 480 400 118 Intake: Amount of Fluid Infused ( 400 ml) Oral 480 118 Other: Voiding Method Toilet Toilet # Voids 2 1 1 Weight 69.853 kg 72.1 kg - Constitutional General appearance: average body habitus, cooperative - EENT EENT: PERRL, mucous membranes moist - Respiratory Respiratory: lungs clear, normal breath sounds - Cardiovascular Cardiovascular: regular rate, normal S1, normal S2 Extremities: no peripheral edema bilaterally - Gastrointestinal Gastrointestinal: normoactive bowel sounds - Integumentary Integumentary: normal - Neurologic Cranial nerve examination: PERRL, EOMI, VFF, V1/V2/V3 grossly intact, face symmetric, intact gag reflex, intact corneal reflex, normal palatal elevation Speech examination: intact Sensorimotor examination: intact Motor examination - right side: 4/5: biceps, triceps, wrist flexion, wrist extension, sheep clipper, hip flexors, knee extensors, dorsiflexion, toe extension (EHL) , plantarflexion Motor examination - left side: 4/5: biceps, triceps, wrist flexion, wrist extension, sheep clipper, hip flexors, knee extensors, dorsiflexion, toe extension (EHL) , plantarflexion Detailed sensory examination: intact Reflex and gait examination: intact Reflexes: 1+: ankle, bicep, knee, tricep - Musculoskeletal Musculoskeletal: no pain - Psychiatric Psychiatric: mood/affect appropriate, cooperative Results - Laboratory Findings CBC and BMP: 03/29/18 18:14 03/29/18 18:14 Abnormal Lab Findings: Abnormal Labs 03/29/18 03/29/18 03/30/18 17:54 18:14 00:07 BUN 18 H Glucose 140 H POC Glucose (mg/dL) 139 H 213 H 03/30/18 03/30/18 06:17 11:35 BUN Glucose POC Glucose (mg/dL) 281 H 365 H Assessment and Plan (1) Vertebrobasilar insufficiency Current Visit: Yes Status: Acute Code(s): G45.0 - VERTEBRO-BASILAR ARTERY SYNDROME SNOMED Code(s): 097628425 (2) Meniere's disease Current Visit: Yes Status: Acute Code(s): H81.09 - MENIERE'S DISEASE, UNSPECIFIED EAR SNOMED Code(s): 84245850 (3) Vertigo Current Visit: Yes Status: Acute Code(s): R42 - DIZZINESS AND GIDDINESS SNOMED Code(s): 307649830 (4) Diabetes mellitus Current Visit: Yes Status: Acute Code(s): E11.9 - TYPE 2 DIABETES MELLITUS WITHOUT COMPLICATIONS SNOMED Code(s): 42780705 Plan: This patient is a 78-year-old female who was admitted to Hospital with symptoms of disequilibrium and unsteady gait. Symptoms began yesterday and seemed to worsen. She was brought into the emergency room at [facility] for further evaluation. She was seen in the ER by Dr. Hay. She underwent a computed tomography scan of the brain as well as CTA angiogram of the head and neck both of which are noted above and were negative. Patient does have history of Mnire's disease for the past 5 years. Her clinical symptoms suggest possibility of vertebrobasilar insufficiency and for this reason she was admitted to hospital for a complete stroke evaluation. We have recommended she undergo a MRI of the brain for further evaluation to rule out brainstem ischemia. We'll obtain a complete stroke evaluation for the patient including carotid Doppler ultrasound and echocardiogram. Would recommend placing this patient on one baby aspirin daily for secondary stroke prevention. Her neurological examination at this time remains nonfocal. There is no obvious dysmetria or focal weakness on her left side. We will await the MRI results and we will give further recommendations at that time. Her overall prognosis at this time remains guarded. This case was discussed at length with the patient and her at bedside. All of their questions were answered. We will continue close neurological follow-up for the patient during this admission. Time with Patient: Greater than 30
--- NOTE | 2018-03-30 18:51 | P.HPIM ---
History of Present Illness H&P Date: 03/30/18 Chief Complaint: Vertiginous sensation This is a 78-year-old old lady patient of Dr. Dr. Caballero. She has underlying history of diabetes mellitus type 2, osteoporosis, Mnire's disease diagnosed by Dr. Roberts for years ago, and right breast carcinoma. Admitted to the hospital secondary to severe vertiginous sensation, and a mild headache. Patient has had symptoms for the past 2 days, spinning sensation, gait radiating to the left side, according to the who came to assist her at that time, they've noticed facial droop however they're unclear how long it lasted, however this is new. Patient denies any weakness of the arms or the legs, patient not routinely on aspirin, denies history of CVA or TIA in the past no CAD per history In emergency room, A1c was 7.8 blood pressure was 141/74, computed tomography scan of the brain showed no acute intracranial hemorrhage or midline shift, mild age-related atrophy and diffuse noted, CTA of the neck that before significant stenosis, consult was made with neurology as there is concern secondary to posterior cerebellar CVA, MRI of the brain is requested, orthostatic to be done, start on Dyazide, and meclizine, patient cannot tolerate prolonged steroids, and will be given on a total of 2 doses on the hospital. One in the ER and one in the floor. Patient also cannot tolerate a lot of diabetic medications, Review of Systems Constitutional: Reports as per HPI, Denies anorexia, Denies chills, Denies chronic headaches, Denies chronic pain, Denies daytime sleepiness, Denies fatigue, Denies fever, Denies lethargy, Denies malaise, Denies night sweats, Denies poor appetite, Denies sweats, Denies weakness, Denies weight gain, Denies weight loss Ears, nose, mouth and throat: Reports as per HPI, Denies ant. neck pain, Denies bleeding gums, Denies dental pain, Denies dysphagia, Denies epistaxis, Denies headache, Denies hoarseness, Denies mouth pain, Denies nasal congestion, Denies nasal discharge, Denies neck fullness/pressure, Denies neck lump, Denies nose pain, Denies odynophagia, Denies post-nasal drip, Denies sinus pain, Denies sinus pressure, Denies swelling in mouth, Denies swelling in throat, Denies sore throat, Denies vertigo, Denies voice changes Cardiovascular: Reports as per HPI, Denies chest pain, Denies claudication, Denies decreased exercise tolerance, Denies dyspnea on exertion, Denies edema, Denies high blood pressure, Denies irregular heart beat, Denies leg edema, Denies lightheadedness, Denies orthopnea, Denies palpitations, Denies paroxysmal nocturnal dyspnea, Denies phlebitis, Denies rapid heart beat, Denies shortness of breath, Denies syncope Respiratory: Reports as per HPI, Denies congestion, Denies cough, Denies cough with sputum, Denies dyspnea, Denies excessive sputum, Denies hemoptysis, Denies home oxygen, Denies pain, Denies pain on inspiration, Denies pleurisy, Denies respiratory infections, Denies sleep apnea, Denies snoring, Denies wheezing Gastrointestinal: Reports as per HPI, Denies abdominal pain, Denies belching, Denies bloating, Denies BRBPR, Denies change in bowel habits, Denies coffee ground emesis, Denies constipation, Denies diarrhea, Denies dyspepsia, Denies early satiety, Denies excessive gas, Denies heartburn, Denies hematemesis, Denies hematochezia, Denies indigestion, Denies jaundice, Denies lactose intolerance, Denies loss of appetite, Denies melena, Denies nausea, Denies vomiting Genitourinary: Reports as per HPI, Denies abnormal vaginal bleeding, Denies decreased libido, Denies difficulty conceiving, Denies difficulty voiding, Denies dysmenorrhea, Denies dyspareunia, Denies dysuria, Denies flank pain, Denies genital sores, Denies hematuria, Denies hot flashes, Denies incomplete emptying, Denies kidney stones, Denies menorrhagia, Denies mixed incontinence, Denies nocturia, Denies pelvic pain, Denies post void dribbling, Denies , Denies prolapse symptoms, Denies stress incontinence, Denies urge incontinence , Denies urgency, Denies urinary frequency, Denies vaginal discharge, Denies vaginal dryness, Denies vaginal itching, Denies vaginal odor Menstruation: Reports as per HPI, Denies amenorrhea, Denies amenorrhea on BC, Denies currently menstrual, Denies cycle < 21 days, Denies cycle > 35 days, Denies cycle variable, Denies menses 1-7 days, Denies menses 8 or > days, Denies menses variable, Denies period heavy, Denies period light, Denies period normal, Denies period spotting, Denies post hysterectomy, Denies postmenopausal , Denies premenarcheal Musculoskeletal: Reports as per HPI, Denies arm numbness/tingling, Denies atrophy, Denies fractures, Denies frequent falls, Denies gait dysfunction, Denies hot joints, Denies leg numbness/tingling, Denies limitation of motion, Denies loss of height, Denies low back pain, Denies morning stiffness, Denies muscle cramps, Denies muscle weakness, Denies myalgias, Denies neck pain, Denies neck stiffness, Denies prior amputations, Denies redness of joints, Denies shooting arm pain, Denies shooting leg pain Integumentary: Reports as per HPI, Denies acne, Denies boils, Denies brittle nails, Denies change in hair/nails, Denies color changes, Denies darkening of skin, Denies depigmentation, Denies dryness, Denies foot/leg ulcers, Denies growths, Denies hirsutism, Denies lesions, Denies onychomycosis, Denies pruritus , Denies rash, Denies sores, Denies striae, Denies unusual bruising, Denies wounds Neurological: Reports as per HPI, Reports gait dysfunction, Reports vertigo, Denies aphasia, Denies ataxia, Denies balance difficulties, Denies burning pain , Denies change in mentation, Denies change in smell/taste, Denies change in speech, Denies confusion, Denies convulsions, Denies double vision, Denies head injury, Denies headaches, Denies hearing difficulties, Denies loss of vision, Denies memory loss, Denies migraines, Denies motor disturbance, Denies numbness , Denies paralysis, Denies paresthesias, Denies seizures, Denies sensory deficit , Denies spasticity, Denies syncope, Denies tic, Denies tingling, Denies transient paralysis, Denies tremors, Denies weakness, Denies visual changes Endocrine: Reports as per HPI Hematologic/Lymphatic: Reports as per HPI Allergic/Immunologic: Reports as per HPI, Denies allergic rhinitis, Denies anaphylaxis, Denies angioedema, Denies gluten intolerance, Denies persistent infections, Denies seasonal allergies, Denies urticaria, Denies wheezing Past Medical History Past Medical History: Diabetes Mellitus, Hyperlipidemia Additional Past Medical History / Comment(s): STATES UNABLE TO TOLERATE MEDS FOR DIABETES AND CHOLESTEROL. HX OF MENIERE'S History of Any Multi-Drug Resistant Organisms: None Reported Past Surgical History: Cholecystectomy Additional Past Surgical History / Comment(s): RODOLFO. CATARACTS Past Anesthesia/Blood Transfusion Reactions: No Reported Reaction Past Psychological History: No Psychological Hx Reported Smoking Status: Never smoker Past Alcohol Use History: None Reported Past Drug Use History: None Reported - Past Family History Sister(s) Family Medical History: Cancer (Breasts) Additional Family Medical History / Comment(s): breast, Brother(s) Family Medical History: Cancer, COPD, Coronary Artery Disease (CAD) Additional Family Medical History / Comment(s): lung Daughter(s) Family Medical History: No Reported History Son(s) Family Medical History: No Reported History Mother Family Medical History: CVA/TIA Father Family Medical History: Coronary Artery Disease (CAD) Medications and Allergies Home Medications Medication Instructions Recorded Confirmed Type Levothyroxine Sodium [Synthroid] 88 mcg PO DAILY 07/25/14 03/29/18 History Jaycob/D3/Mag11/Zinc/Senior Bioinformatics Specialist/Danial/Bor 1 tab PO DAILY 08/15/16 03/29/18 History [Caltrate 600+D Plus Tablet] Glimepiride [Amaryl] 2 mg PO BID 03/29/18 03/29/18 History Repaglinide [Prandin] 0.5 mg PO AC-TID 03/29/18 03/29/18 History Allergies Allergy/AdvReac Type Severity Reaction Status Date / Time iodine Allergy Unknown Verified 03/29/18 19:02 steroids Allergy Unknown Uncoded 03/29/18 17:44 Physical Exam Vitals: Vital Signs Temp Pulse Pulse Resp BP BP Pulse Ox 03/30/18 11:35 97.6 F 87 18 151/77 90 L 03/30/18 08:33 92 L 03/30/18 08:07 97.5 F L 89 18 130/60 92 L 03/30/18 05:32 87 16 132/60 94 L 03/30/18 04:00 78 16 03/30/18 00:03 78 16 141/74 95 03/30/18 00:00 78 16 03/29/18 23:01 77 20 179/71 95 03/29/18 22:00 68 20 199/79 96 03/29/18 21:00 72 20 190/79 90 L 03/29/18 19:05 64 18 193/82 96 03/29/18 17:39 98.7 F 67 20 188/87 99 Intake and Output 03/29/18 03/30/18 03/30/18 22:59 06:59 14:59 Intake Total 480 400 118 Balance 480 400 118 Intake: Amount of Fluid Infused ( 400 ml) Oral 480 118 Other: Voiding Method Toilet Toilet # Voids 2 1 1 Weight 69.853 kg 72.1 kg - Constitutional General appearance: cooperative - EENT Eyes: anicteric sclerae, EOMI, dentition normal, normal appearance ENT: hearing grossly normal, NA/AT, normal oropharynx - Neck Neck: normal ROM - Respiratory Respiratory: bilateral: CTA, negative: diminished, dullness - Cardiovascular Rhythm: regular Heart sounds: normal: S1, S2 Abnormal Heart Sounds: no systolic murmur, no diastolic murmur, no rub, no S3 Gallop, no S4 Gallop, no click, no other - Gastrointestinal General gastrointestinal: normal bowel sounds, soft - Integumentary Integumentary: decreased turgor, normal - Neurologic Neurologic: CNII-XII intact - Musculoskeletal Musculoskeletal: gait normal, strength equal bilaterally - Psychiatric Psychiatric: A&O x's 3, appropriate affect, intact judgment & insight Results CBC & Chem 7: 03/29/18 18:14 03/29/18 18:14 Labs: Abnormal Lab Results - Last 24 Hours (Table) 03/29/18 03/29/18 03/30/18 Range/Units 17:54 18:14 00:07 BUN 18 H (7-17) mg/dL Glucose 140 H (74-99) mg/dL POC Glucose (mg/dL) 139 H 213 H (75-99) mg/dL 03/30/18 03/30/18 Range/Units 06:17 11:35 BUN (7-17) mg/dL Glucose (74-99) mg/dL POC Glucose (mg/dL) 281 H 365 H (75-99) mg/dL Laboratory Results WBC 7.7 k/uL (3.8-10.6) 03/29/18 18:14 RBC 4.58 m/uL (3.80-5.40) 03/29/18 18:14 Hgb 13.4 gm/dL (11.4-16.0) 03/29/18 18:14 Hct 40.1 % (34.0-46.0) 03/29/18 18:14 MCV 87.5 fL (80.0-100.0) 03/29/18 18:14 MCH 29.3 pg (25.0-35.0) 03/29/18 18:14 MCHC 33.4 g/dL (31.0-37.0) 03/29/18 18:14 RDW 12.8 % (11.5-15.5) 03/29/18 18:14 Plt Count 201 k/uL (150-450) 03/29/18 18:14 Neutrophils % 63 % 03/29/18 18:14 Lymphocytes % 28 % 03/29/18 18:14 Monocytes % 5 % 03/29/18 18:14 Eosinophils % 1 % 03/29/18 18:14 Basophils % 0 % 03/29/18 18:14 Neutrophils # 4.8 k/uL (1.3-7.7) 03/29/18 18:14 Lymphocytes # 2.2 k/uL (1.0-4.8) 03/29/18 18:14 Monocytes # 0.4 k/uL (0-1.0) 03/29/18 18:14 Eosinophils # 0.1 k/uL (0-0.7) 03/29/18 18:14 Basophils # 0.0 k/uL (0-0.2) 03/29/18 18:14 PT 10.0 sec (9.0-12.0) 03/29/18 18:14 INR 1.0 (<1.2) 03/29/18 18:14 Sodium 141 mmol/L (137-145) 03/29/18 18:14 Potassium 4.6 mmol/L (3.5-5.1) 03/29/18 18:14 Chloride 104 mmol/L (98-107) 03/29/18 18:14 Carbon Dioxide 26 mmol/L (22-30) 03/29/18 18:14 Anion Gap 11 mmol/L 03/29/18 18:14 BUN 18 mg/dL (7-17) H 03/29/18 18:14 Creatinine 0.60 mg/dL (0.52-1.04) 03/29/18 18:14 Est GFR (CKD-EPI)AfAm >90 (>60 ml/min/1.73 sqM) 03/29/18 18:14 Est GFR (CKD-EPI)NonAf 87 (>60 ml/min/1.73 sqM) 03/29/18 18:14 Glucose 140 mg/dL (74-99) H 03/29/18 18:14 POC Glucose (mg/dL) 304 mg/dL (75-99) H 03/30/18 16:54 POC Glu Ecological Economist ID Roseann Orozco 03/30/18 16:54 Plasma Lactic Acid Elias 0.7 mmol/L (0.7-2.0) 03/29/18 18:14 Calcium 10.0 mg/dL (8.4-10.2) 03/29/18 18:14 Total Bilirubin 0.5 mg/dL (0.2-1.3) 03/29/18 18:14 AST 23 U/L (14-36) 03/29/18 18:14 ALT 22 U/L (9-52) 03/29/18 18:14 Alkaline Phosphatase 87 U/L (38-126) 03/29/18 18:14 Troponin I <0.012 ng/mL (0.000-0.034) 03/29/18 18:14 Total Protein 7.3 g/dL (6.3-8.2) 03/29/18 18:14 Albumin 4.2 g/dL (3.5-5.0) 03/29/18 18:14 Urine Color Colorless 03/30/18 00:08 Urine Appearance Clear (Clear) 03/30/18 00:08 Urine pH 7.0 (5.0-8.0) 03/30/18 00:08 Ur Specific [place] 1.006 (1.001-1.035) 03/30/18 00:08 Urine Protein Negative (Negative) 03/30/18 00:08 Urine Glucose (UA) Negative (Negative) 03/30/18 00:08 Urine Ketones Negative (Negative) 03/30/18 00:08 Urine Blood Negative (Negative) 03/30/18 00:08 Urine Nitrite Negative (Negative) 03/30/18 00:08 Urine Bilirubin Negative (Negative) 03/30/18 00:08 Urine Urobilinogen <2.0 mg/dL (<2.0) 03/30/18 00:08 Ur Leukocyte Esterase Negative (Negative) 03/30/18 00:08 Thrombosis Risk Factor Assmnt - DVT/VTE Prophylaxis DVT/VTE Prophylaxis: Mechanical Prophylaxis ordered - Choose All That Apply Each Risk Factor Represents 3 Points: Age 75 years or older Thrombosis Risk Factor Assessment Total Risk Factor Score: 3 Thrombosis Risk Factor Assessment Level: Moderate Risk Assessment and Plan Plan: 1. Disequilibrium, severe vertigo, with impaired balance, with underlying history of Mnire's disease, diabetes mellitus and hypertension, at risk for acute neurologic event. She it would be concerning for cerebellar stroke, she would be investigated further include MRI of the brain with and without contrast , CT angiogram neck was negative for stenosis, patient was given 2 doses of Solu -Medrol, and would start on physical therapy as well as meclizine, unfortunately the otoscope in the sixth floor is not working properly, aspirin 1025 mg daily, continue on amlodipine, 2. Mnire's disease, presenting mainly with tiny tumors, no significant hearing loss, was diagnosed by Dr. Roberts in the past, Dyazide to be started, orthostatics to be done. If this is positive, Dyazide has to be discontinued 3 Diabetes mellitus type 2 uncontrolled on glimepiride 2 mg twice a day, A1c is 7.8, this could be re-titrated to 3 mg the morning, and 2 mg in the afternoon, continue on Prandin 0.5 mg 3 times a day, patient was receiving Solu-Medrol, 2 doses while in the hospital. Last dose to be given this afternoon for Solu- Medrol., NovoLog coverage 4. Hypothyroidism on levothyroxine 88 g daily 5. Hypertension, currently on amlodipine, however with orthostasis, Dyazide is not going to be started 6. Mild orthostasis with 12 systolic drop, fluid and hydration, 7. CK stage 2, GFR of 87 8. Debility with impaired balance, anticipate home therapies GI prophylaxis DVT prophylaxis
[2018-03-30 21:12] LABS: Glucose,Whole Blood 307 mg/dL (75-99)
[2018-03-31 01:55] LABS: Glucose,Whole Blood 269 mg/dL (75-99)
[2018-03-31 06:06] LABS: Glucose,Whole Blood 231 mg/dL (75-99)
[2018-03-31] MEDS: INSULIN ASPART 100 UNIT/ML 1 ML 10 ML VIAL SQ SCH ×4 (06:28→22:52)
[2018-03-31] MEDS: GLIMEPIRIDE 2 MG TAB PO SCH ×2 (06:29→17:26)
[2018-03-31] MEDS: LEVOTHYROXINE 88 MCG TAB PO SCH (06:29)
[2018-03-31] MEDS: REPAGLINIDE 1 MG TAB PO SCH ×3 (06:29→17:26)
[2018-03-31] MEDS: ASPIRIN 325 MG TAB PO SCH (08:12)
[2018-03-31] MEDS: amLODIPine 5 MG TAB PO SCH (08:12)
[2018-03-31] MEDS ORDERED: TRIAMTERENE-HCTZ 37.5-25MG 1 EACH CAP PO SCH (09:00)
[2018-03-31 11:44] LABS: Glucose,Whole Blood 232 mg/dL (75-99)
--- NOTE | 2018-03-31 15:32 | P.PN ---
Subjective Progress Note Date: 03/31/18 This is a 78-year-old old lady patient of Dr. Dr. Caballero. She has underlying history of diabetes mellitus type 2, osteoporosis, Mnire's disease diagnosed by Dr. Roberts for years ago, and right breast carcinoma. Admitted to the hospital secondary to severe vertiginous sensation, and a mild headache. Patient has had symptoms for the past 2 days, spinning sensation, gait radiating to the left side, according to the who came to assist her at that time, they've noticed facial droop however they're unclear how long it lasted, however this is new. Patient denies any weakness of the arms or the legs, patient not routinely on aspirin, denies history of CVA or TIA in the past no CAD per history In emergency room, A1c was 7.8 blood pressure was 141/74, computed tomography scan of the brain showed no acute intracranial hemorrhage or midline shift, mild age-related atrophy and diffuse noted, CTA of the neck that before significant stenosis, consult was made with neurology as there is concern secondary to posterior cerebellar CVA, MRI of the brain is requested, orthostatic to be done, start on Dyazide, and meclizine, patient cannot tolerate prolonged steroids, and will be given on a total of 2 doses on the hospital. One in the ER and one in the floor. Patient also cannot tolerate a lot of diabetic medications 6/3: Patient's doing better, she has difficulties with hearing today as it as it feels muffled, patient has no issues regarding nausea, vertigo has improved, still has disequilibrium. Otoscope finding shows bilateral serous otitis, mild no cerumen impaction. Flonase added, Prandin increase 1 mg 3 times a day blood sugars are between 200-307 MRIbrain scheduled for tomorrow Objective - Vital Signs Vital signs: Vital Signs Temp 97.8 F 03/31/18 12:00 Pulse 67 03/31/18 12:00 Resp 18 03/31/18 12:00 BP 144/67 03/31/18 12:00 Pulse Ox 94 L 03/31/18 12:00 Intake & Output 03/30/18 03/31/18 03/31/18 18:59 06:59 18:59 Intake Total 458 480 180 Balance 458 480 180 Weight 71.8 kg Intake: Oral 458 480 180 Other: Voiding Method Toilet Toilet Toilet # Voids 1 0 - Constitutional General appearance: Present: cooperative, no acute distress - EENT Eyes: Present: abnormal pupil, EOMI, PERRLA, dentition normal ENT: Present: hard of hearing, NA/AT, normal oropharynx Ears: bilateral: fluid - Neck Neck: Present: normal ROM - Respiratory Respiratory: bilateral: CTA, negative: diminished, dullness, rales, rhonchi - Gastrointestinal General gastrointestinal: Present: normal bowel sounds, soft - Integumentary Integumentary: Present: normal - Neurologic Neurologic: Present: CNII-XII intact - Musculoskeletal Musculoskeletal: Present: strength equal bilaterally - Psychiatric Psychiatric: Present: A&O x's 3, appropriate affect, intact judgment & insight - Labs CBC & Chem 7: 03/29/18 18:14 03/29/18 18:14 Labs: Abnormal Lab Results - Last 24 Hours (Table) 03/30/18 03/30/18 03/30/18 Range/Units 05:48 16:54 21:10 POC Glucose (mg/dL) 304 H 307 H (75-99) mg/dL Hemoglobin A1c 8.4 H (4.0-6.0) % 03/31/18 03/31/18 03/31/18 Range/Units 01:53 06:05 11:42 POC Glucose (mg/dL) 269 H 231 H 232 H (75-99) mg/dL Hemoglobin A1c (4.0-6.0) % Laboratory Results - last 24 hr 03/30/18 03/30/18 03/30/18 05:48 16:54 21:10 POC Glucose (mg/dL) 304 H 307 H POC Glu Camera Machinist ID Roseann Orozco Rainey, [address] Glu mg/dL 194 Hemoglobin A1c 8.4 H 03/31/18 03/31/18 03/31/18 01:53 06:05 11:42 POC Glucose (mg/dL) 269 H 231 H 232 H POC Glu Camera Machinist ID Kimberly Saavedra Candy Traub, Rainey, Candy Hostetter, [address] Glu mg/dL Hemoglobin A1c Assessment and Plan Plan: 1. Disequilibrium, severe vertigo, with impaired balance, with underlying history of Mnire's disease, diabetes mellitus and hypertension, at risk for acute neurologic event. She it would be concerning for cerebellar stroke, she would be investigated further include MRI of the brain with and without contrast , CT angiogram neck was negative for stenosis, patient was given 2 doses of Solu -Medrol, and would start on physical therapy as well as meclizine, unfortunately the otoscope in the sixth floor is not working properly, aspirin 1025 mg daily, continue on amlodipine, MRI to be done in the morning, fluticasone added for serous otitis 2. Mnire's disease, presenting mainly with tiny tumors, no significant hearing loss, was diagnosed by Dr. Roberts in the past, Dyazide to be started, orthostatics to be done. If this is positive, Dyazide has to be discontinued 3 Diabetes mellitus type 2 uncontrolled on glimepiride 2 mg twice a day, A1c is 7.8, this could be re-titrated to 3 mg the morning, and 2 mg in the afternoon, patient was receiving Solu-Medrol, 2 doses while in the hospital. Last dose to be given this afternoon for Solu-Medrol., NovoLog coverage , increase Prandin to 1 mg 3 times a day as blood sugars are uncontrolled 4. Hypothyroidism on levothyroxine 88 g daily 5. Hypertension, currently on amlodipine, however with orthostasis, Dyazide is not going to be started 6. Mild orthostasis with 12 systolic drop, fluid and hydration, 7. CK stage 2, GFR of 87 8. Debility with impaired balance, anticipate home therapies GI prophylaxis DVT prophylaxis
[2018-03-31 17:24] LABS: Glucose,Whole Blood 161 mg/dL (75-99)
--- NOTE | 2018-03-31 18:22 | P.PN ---
Subjective Progress Note Date: 03/31/18 This patient is a 78-year-old female who was admitted yesterday to Hospital with symptoms of dizziness and possible posterior circulation ischemia. Patient has a known history of Mnire's disease which was diagnosed by Dr. Roberts years ago. She has intermittent symptoms of dizziness but recently her symptoms of dizziness were more suggesting a dysequilibrium. She was having difficulty with her balance and this was quite different from her typical symptoms of Mnire's disease. For this reason she was brought into the emergency room and was subsequent admitted to Hospital. Neurological examination done yesterday fails to reveal any focal deficits. We did recommend an MRI of the brain to be done to rule out brainstem ischemia. Today she has been doing somewhat better but does complain of some tinnitus involving her right ear. She may have some early signs of ear infection as well and she was to be placed on some eardrops. As noted she is to have MRI of the brain done tomorrow and we will await those results. During her recent episode of symptoms she also was noted by her is having left facial droop. This is completely resolved and she has had no further recurrence of facial weakness. Patient otherwise states she was able to get up and walk to the bathroom without any assistance. She was able to work with physical therapy and walk in the hallway short distance. We will continue close neurological follow-up the patient during this admission. Her overall prognosis at this time remains guarded. Objective - Vital Signs Vital signs: Vital Signs Temp 97.5 F L 03/31/18 16:00 Pulse 59 L 03/31/18 16:00 Resp 18 03/31/18 16:00 BP 140/65 03/31/18 16:00 Pulse Ox 94 L 03/31/18 16:00 Intake & Output 03/30/18 03/31/18 03/31/18 18:59 06:59 18:59 Intake Total 458 480 180 Balance 458 480 180 Weight 71.8 kg Intake: Oral 458 480 180 Other: Voiding Method Toilet Toilet Toilet # Voids 1 0 - Exam Physical Examination: PHYSICAL EXAMINATION: Patient is resting comfortably in bed. VITAL SIGNS: Blood pressure is [140/65]. Heart rate is [59]. Respiration is [18] . Temperature is [97.5]. HEENT: Head is atraumatic, neck is supple, there were no carotid bruits. CHEST: Lungs are clear to auscultation and percussion. CARDIAC: S1, S2 normal rate and rhythm. There is no murmur. ABDOMEN: Soft and nontender. Bowel sounds are present. EXTREMITIES: There is no pedal edema. Peripheral pulses are present. Neurological examination: Patient has a nonfocal neurological exam today. On assessing her gait she has some mild gait instability when ambulating. - Labs CBC & Chem 7: 03/29/18 18:14 03/29/18 18:14 Labs: Abnormal Lab Results - Last 24 Hours (Table) 03/30/18 03/30/18 03/31/18 Range/Units 05:48 21:10 01:53 POC Glucose (mg/dL) 307 H 269 H (75-99) mg/dL Hemoglobin A1c 8.4 H (4.0-6.0) % 03/31/18 03/31/18 03/31/18 Range/Units 06:05 11:42 17:04 POC Glucose (mg/dL) 231 H 232 H 161 H (75-99) mg/dL Hemoglobin A1c (4.0-6.0) % Assessment and Plan (1) Vertebrobasilar insufficiency Current Visit: Yes Status: Acute Code(s): G45.0 - VERTEBRO-BASILAR ARTERY SYNDROME SNOMED Code(s): 054151318 (2) Meniere's disease Current Visit: Yes Status: Acute Code(s): H81.09 - MENIERE'S DISEASE, UNSPECIFIED EAR SNOMED Code(s): 55650032 (3) Vertigo Current Visit: Yes Status: Acute Code(s): R42 - DIZZINESS AND GIDDINESS SNOMED Code(s): 695187094 (4) Diabetes mellitus Current Visit: Yes Status: Acute Code(s): E11.9 - TYPE 2 DIABETES MELLITUS WITHOUT COMPLICATIONS SNOMED Code(s): 81139734 Plan: This patient is a 78-year-old female being evaluated for vertigo and disequilibrium. She has a long-standing history of Mnire's disease which has remained stable over the years. Given her recent episode of dysequilibrium as well as left facial droop she was admitted for possibility of brainstem ischemia. She is to undergo MRI of the brain tomorrow and we will follow-up these results. Patient is complaining of some ear discomfort in the right ear. She is be started on some ear drops. We will continue to follow her progress closely during this admission. She was able to work with physical therapy today and did fairly well. Neurological examination remains nonfocal at this time. We will continue close neurological follow-up the patient during this admission.
[2018-03-31 20:37] LABS: Glucose,Whole Blood 192 mg/dL (75-99)
[2018-03-31] MEDS: MAG HYDROX/AL HYDROX/SIMETH 30 ML CUP PO SCH (22:50)
[2018-03-31] MEDS: DOCUSATE 100 MG CAP PO SCH (22:50)
[2018-03-31] MEDS: FLUTICASONE 50MCG/SPRAY NASAL 16GM EA NOSTRIL SCH (22:53)
[2018-04-01 05:59] LABS: Glucose,Whole Blood 122 mg/dL (75-99)
[2018-04-01 06:18] LABS: Basophils % (A) 0 %; Eosinophils # (A) 0.1 k/uL (0-0.7); Eosinophils % (A) 1 %; HCT 42.4 % (34.0-46.0); Lymphocytes # (A) 3.8 k/uL (1.0-4.8); Lymphocytes % (A) 38 %; MCH 29.6 pg (25.0-35.0); MCV 89.7 fL (80.0-100.0); Monocytes # (A) 0.3 k/uL (0-1.0); Monocytes % (A) 3 %; Neutrophils # (A) 5.6 k/uL (1.3-7.7); Neutrophils % (A) 56 %; Platelet Count 212 k/uL (150-450); RBC 4.72 m/uL (3.80-5.40); WBC 9.9 k/uL (3.8-10.6)
[2018-04-01 06:31] LABS: Anion Gap 12 mmol/L; Blood Urea Nitrogen 20 mg/dL (7-17); Calcium 9.5 mg/dL (8.4-10.2); Carbon Dioxide 26 mmol/L (22-30); Chloride 105 mmol/L (98-107); Glucose 126 mg/dL (74-99); Potassium 4.4 mmol/L (3.5-5.1); Sodium 143 mmol/L (137-145)
[2018-04-01] MEDS: REPAGLINIDE 1 MG TAB PO SCH ×3 (06:49→17:23)
[2018-04-01] MEDS: LEVOTHYROXINE 88 MCG TAB PO SCH (06:49)
[2018-04-01] MEDS: GLIMEPIRIDE 2 MG TAB PO SCH ×2 (06:49→17:23)
[2018-04-01] MEDS: INSULIN ASPART 100 UNIT/ML 1 ML 10 ML VIAL SQ SCH ×3 (08:35→17:28)
[2018-04-01] MEDS: FLUTICASONE 50MCG/SPRAY NASAL 16GM EA NOSTRIL SCH (08:40)
[2018-04-01] MEDS: ASPIRIN 325 MG TAB PO SCH (08:40)
[2018-04-01] MEDS: DOCUSATE 100 MG CAP PO SCH (08:40)
[2018-04-01] MEDS: MAG HYDROX/AL HYDROX/SIMETH 30 ML CUP PO SCH ×3 (08:40→17:29)
[2018-04-01] MEDS: amLODIPine 5 MG TAB PO SCH (08:40)
[2018-04-01 10:02] VITALS: TEMP 97.8
[2018-04-01 11:31] LABS: Glucose,Whole Blood 273 mg/dL (75-99)
[2018-04-01] MEDS ORDERED: hydrALAZINE HCL 20 MG/ML 1 ML VIAL IVP PRN (13:47)
[2018-04-01] MEDS ORDERED: amLODIPine 5 MG TAB PO SCH (14:00)
[2018-04-01] MEDS ORDERED: TRIAMTERENE-HCTZ 37.5-25MG 1 EACH CAP PO SCH (14:00)
[2018-04-01] MEDS ORDERED: DIAZEPAM 5 MG TAB ONE (15:26)
[2018-04-01 16:08] LABS: Glucose,Whole Blood 256 mg/dL (75-99)
--- NOTE | 2018-04-01 16:19 | P.DS ---
Providers Date of admission: 03/29/18 21:27 Attending physician: Beverley Arechiga Consults: 03/29/18 21:28 Consult Physician Routine Consulting Provider: Giorgi Campbell Consult Reason/Comments: Vertigo, concern for posterior stroke Do you want consulting provider notified?: Yes Primary care physician: Gauri Caballero [facility] Course: This is a 78-year-old old lady patient of Dr. Dr. Caballero. She has underlying history of diabetes mellitus type 2, osteoporosis, Mnire's disease diagnosed by Dr. Roberts for years ago, and right breast carcinoma. Admitted to the hospital secondary to severe vertiginous sensation, and a mild headache. Patient has had symptoms for the past 2 days, spinning sensation, gait radiating to the left side, according to the who came to assist her at that time, they've noticed facial droop however they're unclear how long it lasted, however this is new. Patient denies any weakness of the arms or the legs, patient not routinely on aspirin, denies history of CVA or TIA in the past no CAD per history In emergency room, A1c was 7.8 blood pressure was 141/74, computed tomography scan of the brain showed no acute intracranial hemorrhage or midline shift, mild age-related atrophy and diffuse noted, CTA of the neck that before significant stenosis, consult was made with neurology as there is concern secondary to posterior cerebellar CVA, MRI of the brain is requested, orthostatic to be done, start on Dyazide, and meclizine, patient cannot tolerate prolonged steroids, and will be given on a total of 2 doses on the hospital. One in the ER and one in the floor. Patient also cannot tolerate a lot of diabetic medications 03/31: Patient's doing better, she has difficulties with hearing today as it as it feels muffled, patient has no issues regarding nausea, vertigo has improved, still has disequilibrium. Otoscope finding shows bilateral serous otitis, mild no cerumen impaction. Flonase added, Prandin increase 1 mg 3 times a day blood sugars are between 200-307 MRIbrain scheduled for tomorrow 04/01: Patient's doing much better with less vertigo, was able to ambulate with physical therapy, no devices needed during therapy, patient has high blood pressure and Dyazide started during this visit to help with many years and blood pressure, MRI to be done at 4 PM, he shouldn't requested discharge home after MRI outpatient follow-up reports blood sugars have better and has been michell Prandin increased to 1 mg 3 times a day, home therapies Final Diagnosis: 1. Disequilibrium, severe vertigo, with impaired balance, with underlying history of Mnire's disease, diabetes mellitus and hypertension, at risk for acute neurologic event. She it would be concerning for cerebellar stroke, she would be investigated further include MRI of the brain with and without contrast , CT angiogram neck was negative for stenosis, patient was given 2 doses of Solu -Medrol, and would start on physical therapy as well as meclizine, otoscopic examination shows bilateral serous otitis held, aspirin 1025 mg daily, continue on amlodipine, MRI to be done today at 4 PM, fluticasone added for serous otitis MRI report pending upon discharge Follow-up Dr. Campbell in [address] Caballero in 1-3 days 2. Mnire's disease, presenting mainly with tiny tumors, no significant hearing loss, was diagnosed by Dr. Roberts in the past, Dyazide to be started, orthostatics to be done. Dyazide started with cautious blood pressure monitoring at home, orthostasis positive 3 Diabetes mellitus type 2 uncontrolled on glimepiride 2 mg twice a day, A1c is 7.8, this could be re-titrated to 3 mg the morning, and 2 mg in the afternoon, patient was receiving Solu-Medrol, 2 doses while in the hospital. , increase Prandin to 1 mg 3 times a day as blood sugars stable for discharge 4. Hypothyroidism on levothyroxine 88 g daily 5. Hypertension, currently on amlodipine, however with orthostasis, Dyazide is not going to be started 6. Mild orthostasis with 12 systolic drop, fluid and hydration, blood pressure dropped to 129/64 with baseline blood pressure 140/61 7. CK stage 2, GFR of 87 8. Mild serous otitis media, Flonase on discharge, no decongestant 8. Debility with impaired balance, anticipate home therapies Discharge Medication List Levothyroxine Sodium [Synthroid] 88 mcg PO DAILY 07/25/14 [History] Jaycob/D3/Mag11/Zinc/Plate And Frame Filter Operator/Danial/Bor [Caltrate 600+D Plus Tablet] 1 tab PO DAILY 08/15 [History] Glimepiride [Amaryl] 2 mg PO BID 03/29/18 [History] Aspirin 325 mg PO DAILY tab 04/01/18 [Rx] Docusate [Colace] 100 mg PO DAILY cap 04/01/18 [Rx] Fluticasone Nasal [place] [Flonase Nasal [place]] 1 spray EA NOSTRIL BID #1 spr 02/13 [Rx] Meclizine [Antivert] 12.5 mg PO TID PRN #30 tab 04/01/18 [Rx] Repaglinide [Prandin] 1 mg PO AC-TID #90 tab 04/01/18 [Rx] Triamterene-Hctz 37.5-25Mg [Dyazide 37.5-25 Capsule] 1 each PO DAILY #30 cap 02/13 [Rx] amLODIPine [Norvasc] 5 mg PO BID #60 tab 04/01/18 [Rx] Patient Condition at Discharge: Stable Plan - Discharge Summary Discharge Rx Participant: No New Discharge Prescriptions: No Action Levothyroxine Sodium [Synthroid] 88 mcg PO DAILY Jaycob/D3/Mag11/Zinc/Plate And Frame Filter Operator/Danial/Bor [Caltrate 600+D Plus Tablet] 1 tab PO DAILY Glimepiride [Amaryl] 2 mg PO BID Repaglinide [Prandin] 0.5 mg PO AC-TID Discharge Medication List Levothyroxine Sodium [Synthroid] 88 mcg PO DAILY 07/25/14 [History] Jaycob/D3/Mag11/Zinc/Plate And Frame Filter Operator/Danial/Bor [Caltrate 600+D Plus Tablet] 1 tab PO DAILY 08/15 [History] Glimepiride [Amaryl] 2 mg PO BID 03/29/18 [History] Repaglinide [Prandin] 0.5 mg PO AC-TID 03/29/18 [History] Follow up Appointment(s)/Referral(s): Gauri Caballero MD [Primary Care Provider] - 1-2 days Patient Instructions/Handouts: Vertigo (DC), Diabetic Hyperglycemia (DC)
[2018-04-01 16:44] VITALS: BP 187/82; PULSE 71; RESP 18
--- NOTE | 2018-04-01 17:15 | MR ---
EXAMINATION TYPE: MR brain wo/w con DATE OF EXAM: 04/01/2018 COMPARISON: March 29, 2018 CT/CTA without and with contrast HISTORY: DIZZINESS WITH NAUSEA,Pt. Very [place]. Utilized Fast Brain Protocol, Gadavist 7ml TECHNIQUE: Multiplanar, multisequence images of the brain and brainstem is performed without and with IV contras t, utilizing 12.5 mL intravenous Gadavist . FINDINGS: Diffusion weighted images demonstrate no evidence of a recent infarct or other diffusion ab normality. There is a mild-moderate pattern of nonspecific scattered subcentimeter torres radiata an d centrum semiovale multifocal bilateral T2 hyperintensities, entirely nonspecific but usually reflec ting small vessel ischemic change. There is no extra-axial fluid collection or significant white russ er signal abnormality. The ventricular system and cisternal spaces are normal in size and appearance . The brain volume is age appropriate. Midline structures demonstrate normal morphology. The craniocervical junction appears within normal limits. Post contrast images demonstrate no abnormal enhancement. The dural venous sinuses appear pa tent. The visualized sinuses are clear and the globes are intact. IMPRESSION: No acute process.
--- NOTE | 2018-04-01 18:23 | P.PN ---
Subjective Progress Note Date: 04/01/18 This patient is a 78-year-old female who was admitted yesterday to Hospital with symptoms of dizziness and possible posterior circulation ischemia. Patient has a known history of Mnire's disease which was diagnosed by Dr. Roberts years ago. She has intermittent symptoms of dizziness but recently her symptoms of dizziness were more suggesting a dysequilibrium. She was having difficulty with her balance and this was quite different from her typical symptoms of Mnire's disease. For this reason she was brought into the emergency room and was subsequent admitted to Hospital. Neurological examination done yesterday fails to reveal any focal deficits. We did recommend an MRI of the brain to be done to rule out brainstem ischemia. Today she has been doing somewhat better but does complain of some tinnitus involving her right ear. She may have some early signs of ear infection as well and she was to be placed on some eardrops. As noted she is to have MRI of the brain done tomorrow and we will await those results. During her recent episode of symptoms she also was noted by her is having left facial droop. This is completely resolved and she has had no further recurrence of facial weakness. Patient otherwise states she was able to get up and walk to the bathroom without any assistance. She was able to work with physical therapy and walk in the hallway short distance. Patient was able to complete her MRI of the brain today. The final report indicates no acute abnormalities on the MRI of the brain. We reviewed these results today with the patient. No evidence of brainstem ischemia at this time. Patient may be considered for discharge home later today. We did recommend she follow-up in the outpatient neurology clinic in 3-4 weeks. We will continue close neurological follow-up the patient during this admission. Her overall prognosis at this time remains guarded. Objective - Vital Signs Vital signs: Vital Signs Temp 97.8 F 04/01/18 08:00 Pulse 71 04/01/18 16:00 Resp 18 04/01/18 16:00 BP 187/82 04/01/18 16:00 Pulse Ox 97 04/01/18 16:00 Intake & Output 03/31/18 04/01/18 04/01/18 18:59 06:59 18:59 Intake Total 610 480 Output Total 3 900 Balance 607 -420 Weight 71.1 kg Intake: Oral 610 480 Output: Urine 3 900 Other: Voiding Method Toilet Toilet Toilet # Voids 1 - Exam Physical Examination: PHYSICAL EXAMINATION: Patient is resting comfortably in bed. VITAL SIGNS: Blood pressure is [187/82]. Heart rate is [71]. Respiration is [18] . Temperature is [97.8]. HEENT: Head is atraumatic, neck is supple, there were no carotid bruits. CHEST: Lungs are clear to auscultation and percussion. CARDIAC: S1, S2 normal rate and rhythm. There is no murmur. ABDOMEN: Soft and nontender. Bowel sounds are present. EXTREMITIES: There is no pedal edema. Peripheral pulses are present. Neurological examination: Patient has a nonfocal neurological exam today. On assessing her gait she has some mild gait instability when ambulating. - Labs CBC & Chem 7: 04/01/18 05:55 04/01/18 05:55 Labs: Abnormal Lab Results - Last 24 Hours (Table) 03/31/18 03/31/18 04/01/18 Range/Units 17:04 20:35 05:55 BUN 20 H (7-17) mg/dL Glucose 126 H (74-99) mg/dL POC Glucose (mg/dL) 161 H 192 H (75-99) mg/dL 04/01/18 04/01/18 04/01/18 Range/Units 05:58 11:29 16:05 BUN (7-17) mg/dL Glucose (74-99) mg/dL POC Glucose (mg/dL) 122 H 273 H 256 H (75-99) mg/dL Assessment and Plan (1) Vertebrobasilar insufficiency Current Visit: Yes Status: Acute Code(s): G45.0 - VERTEBRO-BASILAR ARTERY SYNDROME SNOMED Code(s): 258045553 (2) Meniere's disease Current Visit: Yes Status: Acute Code(s): H81.09 - MENIERE'S DISEASE, UNSPECIFIED EAR SNOMED Code(s): 59215955 (3) Vertigo Current Visit: Yes Status: Acute Code(s): R42 - DIZZINESS AND GIDDINESS SNOMED Code(s): 550085112 (4) Diabetes mellitus Current Visit: Yes Status: Acute Code(s): E11.9 - TYPE 2 DIABETES MELLITUS WITHOUT COMPLICATIONS SNOMED Code(s): 22054664 Plan: This patient is a pleasant 78-year-old female who has a known history of Mnire 's disease diagnosed years ago by Dr. Roberts. She was admitted with slight increase in balance difficulty and vertigo. There was concern for brainstem ischemia for this patient. She was able to complete MRI of the brain today final report today indicates no acute process and no evidence of acute stroke or hemorrhage. Results of the MRI were reviewed today with the patient. She feels much relieved that there is no evidence of acute stroke. She should follow-up with Dr. Roberts for further management of her Mnire's disease. Would recommend she be on one baby aspirin if possible on a daily basis for secondary stroke prevention. Patient may follow-up in the outpatient neurology clinic in 3-4 weeks. Her overall prognosis at this time remains guarded.
== END 2018-04-01 19:12 | disposition home health service (06) | DRG 69 ==
LOC: EC 17:28 → 6SEL 21:27 → 5MS5E 03-30 16:35 → 6SEL 03-30 17:11
PROVIDERS: ADMIT Family Medicine; ATTEND Family Medicine
DX: G45.0 Vertebro-basilar artery syndrome (principal); E03.9 Hypothyroidism, unspecified; E11.65 Type 2 diabetes mellitus with hyperglycemia; E78.5 Hyperlipidemia, unspecified; H65.93 Unspecified nonsuppurative otitis media, bilateral; H81.09 Meniere's disease, unspecified ear; H93.11 Tinnitus, right ear; I12.9 Hypertensive chronic kidney disease with stage 1 through stage 4 chronic kidney disease, or unspecified chronic kidney disease; E11.22 Type 2 diabetes mellitus with diabetic chronic kidney disease; N18.2 Chronic kidney disease, stage 2 (mild); Z79.84 Long term (current) use of oral hypoglycemic drugs; M81.0 Age-related osteoporosis without current pathological fracture; Z82.49 Family history of ischemic heart disease and other diseases of the circulatory system; Z82.5 Family history of asthma and other chronic lower respiratory diseases; Z85.3 Personal history of malignant neoplasm of breast; I95.1 Orthostatic hypotension; Z79.82 Long term (current) use of aspirin; Z79.890 Hormone replacement therapy; Z79.899 Other long term (current) drug therapy; Z98.42 Cataract extraction status, left eye; Z98.41 Cataract extraction status, right eye; R51 Headache; R26.89 Other abnormalities of gait and mobility; Z88.8 Allergy status to other drugs, medicaments and biological substances; Z82.3 Family history of stroke; Z80.3 Family history of malignant neoplasm of breast
CPT/HCPCS: 36415; 70450; 70496; 70498; 70553; 71046; 80048; 80053; 81003; 83036; 83605; 84484; 85025; 85610; 93005; 94760; 96374; 96375; 96376; 99285

== ENCOUNTER → 2018-05-17 | Outpatient (CLI) | payer MEDICARE, BC ==
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
== END | disposition home or self-care (01) ==
LOC: RADXRMAIN 10:56
PROVIDERS: ATTEND Internal Medicine
DX: M76.51 Patellar tendinitis, right knee (principal)

== ENCOUNTER → 2018-11-21 | Outpatient (CLI) | payer MEDICARE, BC ==
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
--- NOTE | 2018-11-24 09:45 | MM ---
Reason for exam: history of breast cancer, conservation therapy. Last mammogram was performed 1 year and 1 month ago. History: Patient is postmenopausal and has history of breast cancer at age 77. Family history of premenopausal breast cancer in sister at age 47. Malignant US biopsy breast VAD RT of the right breast, March 13, 2017. Benign US breast aspiration single LT of the left breast, July 22, 2014. Benign right mammotome panel of the right breast, April 09, 2009. Benign excisional biopsy of the left breast, 1989. Physical Findings: Nurse did not find any significant physical abnormalities on exam. MG 3D Diag Mammo W/Cad RODOLFO Bilateral CC and MLO view(s) were taken. Prior study comparison: November 05, 2017, bilateral MG 3d diag mammo w/cad RODOLFO. March 13, 2017, right breast MG diagnostic mammo RT wo CAD. The breast tissue is heterogeneously dense. This may lower the sensitivity of mammography. This patient has heterogeneously dense breast in a complex pattern. Previous bilateral mammotome biopsies. No significant new finding when compared with prior studies. These results were verbally communicated with the patient and result sheet given to the patient on 11/21/18. ASSESSMENT: Benign, BI-RAD 2 RECOMMENDATION: Follow-up diagnostic mammogram of both breasts in 1 year.
== END | disposition home or self-care (01) ==
LOC: RADBDWWP 09:40
PROVIDERS: ATTEND Internal Medicine
DX: C50.919 Malignant neoplasm of unspecified site of unspecified female breast (principal); M85.9 Disorder of bone density and structure, unspecified
CPT/HCPCS: 77080; 77066; G0279; 77062

== ENCOUNTER → 2019-09-19 | Outpatient (CLI) | payer MEDICARE, BC ==
--- NOTE | 2019-09-20 21:59 | US ---
EXAMINATION TYPE: US carotid duplex BILAT DATE OF EXAM: 09/19/2019 COMPARISON: NONE CLINICAL HISTORY: 79-year-old female I65.23 Occlusion/stenosis bilateral carotids. Check up to reasse ss plaque TECHNIQUE: Carotid duplex ultrasound examination. Indirect Doppler criteria was utilized. FINDINGS: EXAM MEASUREMENTS: RIGHT: Peak Systolic Velocity (PSV) cm/sec ----- Right CCA: 70.6 ----- Right ICA: 81.6 ----- Right ECA: 131 ICA/CCA ratio: 1.1 RIGHT: End Diastole cm/sec ----- Right CCA: 17.9 ----- Right ICA: 18.4 ----- Right ECA: 0.0 LEFT: Peak Systolic Velocity (PSV) cm/sec ----- Left CCA: 89.3 ----- Left ICA: 92.4 ----- Left ECA: 100 ICA/CCA ratio: 1.0 LEFT: End Diastole cm/sec ----- Left CCA: 19.6 ----- Left ICA: 16.4 ----- Left ECA: 0.0 VERTEBRALS (direction of flow): Right Vertebral: Antegrade Left Vertebral: Antegrade Rhythm: Normal SOLAR PROCESS ENGINEER NOTES: Mild homogeneous plaque seen; no significant stenosis. IMPRESSION: No hemodynamically significant ICA stenosis on either side. Criteria for Assigning % of Stenosis / Diameter reduction (Estimation based on the indirect measurements of the internal carotid artery velocities (ICA PSV). 1. Normal (no stenosis)=ICA PSV < 125 cm/s: ratio < 2.0: ICA EDV<40 cm/s. 2. Less than 50% stenosis=ICA PSV < 125 cm/s: ratio < 2.0: ICA EDV<40 cm/s. 3. 50 to 69% stenosis=ICA PSV of 125 to 230 cm/s: ration 2.0 ? 4.0: ICA EDV 40-100 cm/s. 4. Greater than 70% stenosis to near occlusion= ICA PSV > 230 cm/s: ratio > 4.0: ICA EDV > 100 cm/s. 5. Near occlusion= ICA PSV velocities may be low or undetectable: variable ratio and ICA EDV. 6. Total occlusion=unable to detect flow.
== END | disposition home or self-care (01) ==
LOC: RADUSWWP 15:37
PROVIDERS: ATTEND Internal Medicine
DX: I65.23 Occlusion and stenosis of bilateral carotid arteries (principal)
CPT/HCPCS: 93880

== ENCOUNTER 2019-09-22 11:03 | Emergency (ER) | payer OTHER, MEDICARE, BC ==
[2019-09-22 11:19] VITALS: RESP 18; TEMP 98.6
[2019-09-22 12:02] LABS: Basophils % (A) 0 %; Eosinophils # (A) 0.1 k/uL (0-0.7); Eosinophils % (A) 1 %; HCT 37.8 % (34.0-46.0); HGB 12.6 gm/dL (11.4-16.0); Lymphocytes % (A) 28 %; MCH 30.2 pg (25.0-35.0); MCHC 33.4 g/dL (31.0-37.0); MCV 90.2 fL (80.0-100.0); Mean Platelet Volume 6.4; Monocytes # (A) 0.3 k/uL (0-1.0); Monocytes % (A) 4 %; Neutrophils # (A) 4.6 k/uL (1.3-7.7); Neutrophils % (A) 65 %; Platelet Count 242 k/uL (150-450); RBC 4.19 m/uL (3.80-5.40); RDW 12.6 % (11.5-15.5); WBC 7.1 k/uL (3.8-10.6)
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
[2019-09-22 12:17] LABS: Albumin 4.2 g/dL (3.5-5.0); Calcium 9.5 mg/dL (8.4-10.2); Potassium 4.1 mmol/L (3.5-5.1); Total Bilirubin 0.5 mg/dL (0.2-1.3); Total Protein 7.5 g/dL (6.3-8.2)
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
[2019-09-22 13:36] VITALS: BP 147/79; PULSE 68
== END 2019-09-22 13:37 | disposition home or self-care (01) ==
LOC: EC 11:03
DX: Z04.1 Encounter for examination and observation following transport accident (principal); E11.9 Type 2 diabetes mellitus without complications; Z79.84 Long term (current) use of oral hypoglycemic drugs; Z79.890 Hormone replacement therapy; Z91.048 Other nonmedicinal substance allergy status; Z88.8 Allergy status to other drugs, medicaments and biological substances
CPT/HCPCS: 36415; 70450; 71046; 72125; 72170; 80053; 84484; 85025; 93005; 99285

== ENCOUNTER → 2019-12-23 | Outpatient (CLI) | payer MEDICARE, BC ==
--- NOTE | 2019-12-23 08:57 | MM ---
Reason for exam: additional evaluation requested from prior study. Last mammogram was performed 1 year and 1 month ago. History: Patient is postmenopausal and has history of breast cancer at age 77. Family history of premenopausal breast cancer in sister at age 47. Malignant US biopsy breast VAD RT of the right breast, March 13, 2017. Lumpectomy of the right breast, 2016. Benign US breast aspiration single LT of the left breast, July 22, 2014. Benign right mammotome panel of the right breast, April 09, 2009. Benign excisional biopsy of the left breast, 1989. Physical Findings: Nurse did not find any significant physical abnormalities on exam. MG 3D Diag Mammo W/Cad RODOLFO Bilateral CC and MLO view(s) were taken. Prior study comparison: November 21, 2018, bilateral MG 3d diag mammo w/cad RODOLFO. November 05, 2017, bilateral MG 3d diag mammo w/cad RODOLFO. March 13, 2017, right breast MG diagnostic mammo RT wo CAD. June 26, 2016, bilateral MG screening mammo w CAD. The breast tissue is heterogeneously dense. This may lower the sensitivity of mammography. Benign appearing bilateral calcifications. Stable right axillary node. Bilateral biopsy markers. No suspicious abnormality. Post therapy change on the right. No significant new findings when compared with previous films. These results were verbally communicated with the patient and result sheet given to the patient on 12/23/19. ASSESSMENT: Benign, BI-RAD 2 RECOMMENDATION: Follow-up diagnostic mammogram of both breasts in 1 year.
== END | disposition home or self-care (01) ==
LOC: RADMAMWWP 07:46
PROVIDERS: ATTEND Internal Medicine
DX: C50.919 Malignant neoplasm of unspecified site of unspecified female breast (principal)
CPT/HCPCS: 77066; G0279; 77062

== ENCOUNTER → 2021-01-19 | Outpatient (CLI) | payer MEDICARE, BC ==
--- NOTE | 2021-01-19 14:45 | MM ---
Reason for exam: additional evaluation requested from prior study. Last mammogram was performed 1 year and 1 month ago. History: Patient is postmenopausal and has history of breast cancer at age 77. Family history of premenopausal breast cancer in sister at age 47. Malignant US biopsy breast VAD RT of the right breast, March 13, 2017. Lumpectomy of the right breast, 2016. Benign US breast aspiration single LT of the left breast, July 22, 2014. Benign right mammotome panel of the right breast, April 09, 2009. Benign excisional biopsy of the left breast, 1989. Physical Findings: Nurse did not find any significant physical abnormalities on exam. MG 3D Diag Mammo W/Cad RODOLFO Bilateral CC and MLO view(s) were taken. Prior study comparison: December 23, 2019, bilateral MG 3d diag mammo w/cad RODOLFO. November 21, 2018, bilateral MG 3d diag mammo w/cad RODOLFO. There are scattered fibroglandular densities. Previous mammotome biopsy in the left breast. These results were verbally communicated with the patient and result sheet given to the patient on 01/19/21. ASSESSMENT: Benign, BI-RAD 2 RECOMMENDATION: Follow-up diagnostic mammogram of both breasts in 1 year.
--- NOTE | 2021-01-19 15:42 | BD ---
EXAMINATION TYPE: Axial Bone Density DATE OF EXAM: 01/19/2021 COMPARISON: NONE CLINICAL HISTORY: Height: 5 FT 3 1/2 IN Weight: 153 FRAX RISK QUESTIONS: Alcohol (3 or more units per day): NO Family History (Parent hip fracture): NO Glucocorticoids (More than 3mos): NO (Ex: prednisone, prednisolone, methylprednisolone, dexamethasone, and hydrocortisone). History of Fracture in Adulthood: YES Secondary Osteoporosis: 1. Type 1 Diabetes: NO 2. Hyperthyroidism: NO 3. Menopause before 45: NO 4. Malnutrition: NO 5. Chronic liver disease: NO Rheumatoid Arthritis: NO Current Tobacco Use: NO RISK FACTORS HISTORY OF: Surgery to Spine/Hip(right/left)/Wrist (right/left): NO Family History of Osteoporosis: NO Active: YES Diet low in dairy products/other sources of calcium: NO Postmenopausal woman: AGE 51 Take estrogen and/or progesterone medications: NO Lost more than 2 inches in height since high school: YES MEDICATIONS: Thyroid Medications: YES Which medication: SYNTHROID How Long: APPROX 10 YEARS Additional Medications: SYNTHROID, METFORMIN, CHOLESTEROL MEDS, BLOOD PRESSURE MEDS, Additional History: EXAM MEASUREMENTS: Bone mineral densitometry was performed using the [employer]MDsoft System. Bone mineral density as measured about the Lumbar spine is: ----- L1-L4(G/cm2): 1.263 T Score Values are as follows: ----- L2: 0.5 ----- L3: 1.0 ----- L4: 2.2 ----- L1-L4: 0.7 Bone mineral density has: INCREASED 4.1 % since study of: 2018 Bone mineral density about the R hip (g/cm2): 0.926 Bone mineral density about the L hip (g/cm2): 0.975 T Score values are as follows: -----R Neck: -0.8 -----L Neck: -0.5 -----R Total: 0.4 -----L Total: 0.4 Bone mineral density has: INCREASED 0.4 % since study of: 2018 IMPRESSION: Normal (Values between +1 and -1 indicate normal bone mass). Consider repeating this study in 5 year s or sooner if there is some new clinical indication. NOTE: T-SCORE=SD OF THE YOUNG ADULT MEAN.
== END | disposition home or self-care (01) ==
LOC: RADMAMWWP 13:55
PROVIDERS: ATTEND Internal Medicine
DX: Z08 Encounter for follow-up examination after completed treatment for malignant neoplasm (principal); Z85.3 Personal history of malignant neoplasm of breast; M81.0 Age-related osteoporosis without current pathological fracture
CPT/HCPCS: 77080; 77066; G0279; 77062

== ENCOUNTER 2021-02-28 06:48 | Day surgery (SDC) | payer MEDICARE, BC ==
[2021-02-24 11:05] VITALS: BMI 24.6
[~2021-02-28 06:48] MED LIST changes: -ALPRAZolam 0.25 MG TAB ONE; -BACITRACIN OINT 1 EACH PACKET TOPICAL ONE; +LIDOCAINE 1% (10MG/ML) FOR IV START INTRADERMA PRN; -LIDOCAINE 1% INJ 10MG/ML (20 ML MDV) ONE
[2021-02-28 07:16] VITALS: TEMP 97.6
[2021-02-28 07:30] LABS: Glucose,Whole Blood 141 mg/dL (75-99)
[2021-02-28] MEDS: LACTATED RINGERS 1,000 ML IV SCH ×2 (07:31→07:46)
[2021-02-28] MEDS ORDERED: LIDOCAINE 1% INJ 10MG/ML (20 ML MDV) ONE (07:48)
[2021-02-28] MEDS ORDERED: PROPOFOL 10 MG/ML 20 ML VIAL IV ONE (07:48)
--- NOTE | 2021-02-28 07:59 | P.PCN ---
Date of Procedure: 02/28/21 Procedure(s) Performed: BRIEF HISTORY: Patient is 81-year-old, pleasant, white female scheduled for an upper endoscopy as a part of evaluation of GERD and throat irritation for the last several months duration. She denies any dysphagia or odynophagia.. PROCEDURE PERFORMED: Esophagogastroduodenoscopy with biopsy. PREOPERATIVE DIAGNOSIS: Chronic throat irritation. IV sedation per anesthesia. PROCEDURE: After informed consent was obtained, the patient was brought into the endoscopy unit. IV sedation was administered by Anesthesia under continuous monitoring. Initially the Olympus GIF-140 video endoscope was inserted into the mouth. Esophagus intubated without any difficulty. It was gradually advanced into the stomach and duodenum and carefully examined. The bulb and the second part of the duodenum appeared normal. The scope at this time was withdrawn to the stomach, adequately insufflated with air, and upon careful examination, mucosa of the antrum, body, cardia and the fundus appeared normal. The scope was then withdrawn into the esophagus. The GE junction was located at 37 cm from t he incisors. Small sliding type hiatal hernia noted. There was circumferential erythema the GE junction consistent with LA grade a reflux esophagitis. The esophagus appeared normal. There were no erosions or ulcerations seen, biopsies were done from the mid and distal esophagus and the patient tolerated the procedure well. IMPRESSION: 1. Small hiatal hernia and LA grade a reflux esophagitis. 2. Rest of the stomach appeared normal. RECOMMENDATIONS: The findings of this examination were discussed with the patient as well as a family. She was advised to follow with the biopsy results. He was advised to continue with omeprazole 20 mg daily for 6 [address] . follow with Dr[address] Caballero as scheduled.
[2021-02-28 08:12] VITALS: BP 129/77; PULSE 67; RESP 18
== END 2021-02-28 08:40 | disposition home or self-care (01) ==
LOC: ORWHC2ENDO 06:48
PROVIDERS: ATTEND Internal Medicine Gastroenterology
DX: K21.00 Gastro-esophageal reflux disease with esophagitis, without bleeding (principal); K44.9 Diaphragmatic hernia without obstruction or gangrene; I10 Essential (primary) hypertension; E78.5 Hyperlipidemia, unspecified; E11.9 Type 2 diabetes mellitus without complications; Z79.84 Long term (current) use of oral hypoglycemic drugs; Z79.890 Hormone replacement therapy; Z79.899 Other long term (current) drug therapy; Z85.3 Personal history of malignant neoplasm of breast; Z88.8 Allergy status to other drugs, medicaments and biological substances
CPT/HCPCS: 88305; 43239; J2001; J2704

== ENCOUNTER 2021-06-26 12:25 | Emergency (ER) | payer MEDICARE, BC ==
[2021-06-26 12:37] VITALS: TEMP 97.9
[2021-06-26] MEDS ORDERED: SODIUM CHLORIDE 0.9% 1,000 ML IV STA (12:52)
[2021-06-26] MEDS ORDERED: MORPHINE SULFATE 4 MG/ML SYRINGE IV STA (12:52)
[2021-06-26] MEDS ORDERED: PANTOPRAZOLE 40 MG/10 ML VIAL IVP STA (12:52)
--- NOTE | 2021-06-26 12:56 | ED ---
General Adult HPI - General Chief complaint: Back Pain/Injury Stated complaint: back pain Time Seen by Provider: 06/26/21 12:46 Source: patient, RN notes reviewed Mode of arrival: ambulatory Limitations: no limitations - History of Present Illness Initial comments: Patient is a pleasant 81-year-old female presenting to the emergency Department with complaints of low back pain. Onset of symptoms was a couple of days ago. Symptoms do increase with movement. Patient did have some abdominal discomfort, right lower for the past week or 2 however that has resolved. No nausea vomiting. No fevers. No weakness. No incontinence or retention of bowel or bladder. No history of chronic back problems. - Related Data Home Medications Medication Instructions Recorded Confirmed Levothyroxine Sodium [Synthroid] 88 mcg PO DAILY 07/25/14 06/26/21 Jaycob/D3/Mag11/Zinc/Trimmer And Reinforcer/Danial/Bor 1 tab PO DAILY 08/15/16 06/26/21 [Caltrate 600+D Plus Tablet] Glimepiride [Amaryl] 2 mg PO BID 03/29/18 06/26/21 Ascorbic Acid [Vitamin C] 250 mg PO DAILY 02/24/21 06/26/21 Irbesartan/Hydrochlorothiazide 1 tab PO DAILY 02/24/21 06/26/21 [Irbesartan-Hctz 150-12.5 mg Tb] metFORMIN HCL 500 mg PO BID 02/24/21 06/26/21 Rosuvastatin [Crestor] 20 mg PO DAILY 06/26/21 06/26/21 Previous Rx's Medication Instructions Recorded Sulfamethox-Tmp 800-160Mg [Bactrim 1 each PO Q12HR #20 tab 06/26/21 DS 800-160 mg] Allergies Allergy/AdvReac Type Severity Reaction Status Date / Time iodine Allergy Chest Pain Verified 06/26/21 14:54 steroids Allergy Nausea & Uncoded 06/26/21 12:38 Vomiting Review of Systems ROS Statement: Those systems with pertinent positive or pertinent negative responses have been documented in the HPI. ROS Other: All systems not noted in ROS Statement are negative. Constitutional: Denies: fever Eyes: Denies: eye pain ENT: Denies: ear pain Respiratory: Denies: cough Cardiovascular: Denies: chest pain Endocrine: Denies: fatigue Gastrointestinal: Reports: as per HPI. Denies: nausea, vomiting, diarrhea, constipation Genitourinary: Denies: dysuria Musculoskeletal: Reports: back pain Skin: Denies: rash Past Medical History Past Medical History: Cancer, Diabetes Mellitus, Hyperlipidemia, Hypertension Additional Past Medical History / Comment(s): HX OF MENIERE'S, BREAST CANCER History of Any Multi-Drug Resistant Organisms: None Reported Past Surgical History: Breast Surgery, Cholecystectomy Additional Past Surgical History / Comment(s): RODOLFO. CATARACTS, RT BREAST SX, COLONOSCOPY, Past Anesthesia/Blood Transfusion Reactions: No Reported Reaction Past Psychological History: No Psychological Hx Reported Smoking Status: Never smoker - Past Family History Sister(s) Family Medical History: Cancer Additional Family Medical History / Comment(s): breast, Brother(s) Family Medical History: Cancer, COPD, Coronary Artery Disease (CAD) Additional Family Medical History / Comment(s): lung Daughter(s) Family Medical History: No Reported History Son(s) Family Medical History: No Reported History Mother Family Medical History: CVA/TIA Father Family Medical History: Coronary Artery Disease (CAD) General Exam Limitations: no limitations General appearance: alert, in no apparent distress Head exam: Present: normocephalic Eye exam: Present: normal appearance Neck exam: Present: normal inspection Respiratory exam: Present: normal lung sounds bilaterally Cardiovascular Exam: Present: regular rate, normal rhythm Expanded Peripheral pulses: 2+: Dorsalis Pedis (R), Dorsalis Pedis (L) GI/Abdominal exam: Present: soft, tenderness (Mild epigastric tenderness), normal bowel sounds. Absent: distended, guarding, rebound, rigid, pulsatile mass Extremities exam: Present: normal inspection Back exam: Present: tenderness (Mild diffuse lumbar region tenderness), other (Only mild discomfort with straight leg raise bilaterally) Neurological exam: Present: alert. Absent: motor sensory deficit Psychiatric exam: Present: normal affect, normal mood Skin exam: Present: normal color Course Vital Signs 06/26/21 06/26/21 12:33 14:59 Temperature 97.9 F Pulse Rate 72 75 Respiratory 18 20 Rate Blood Pressure 133/67 142/75 O2 Sat by Pulse 96 99 Oximetry Medical Decision Making - Medical Decision Making Patient reevaluated and feeling better with medication. Patient and family updated on results and need for follow-up. - Lab Data Result diagrams: 06/26/21 13:09 06/26/21 13:09 Lab Results 06/26/21 06/26/21 06/26/21 Range/Units 13:09 13:09 13:09 WBC 5.3 (3.8-10.6) k/uL RBC 3.73 L (3.80-5.40) m/uL Hgb 11.4 (11.4-16.0) gm/dL Hct 33.5 L (34.0-46.0) % MCV 89.7 (80.0-100.0) fL MCH 30.6 (25.0-35.0) pg MCHC 34.2 (31.0-37.0) g/dL RDW 13.1 (11.5-15.5) % Plt Count 179 (150-450) k/uL MPV 7.7 Neutrophils % 70 % Lymphocytes % 22 % Monocytes % 5 % Eosinophils % 1 % Basophils % 0 % Neutrophils # 3.8 (1.3-7.7) k/uL Lymphocytes # 1.2 (1.0-4.8) k/uL Monocytes # 0.2 (0-1.0) k/uL Eosinophils # 0.1 (0-0.7) k/uL Basophils # 0.0 (0-0.2) k/uL PT (9.0-12.0) sec INR (<1.2) APTT (22.0-30.0) sec Sodium 138 (137-145) mmol/L Potassium 4.3 (3.5-5.1) mmol/L Chloride 103 (98-107) mmol/L Carbon Dioxide 28 (22-30) mmol/L Anion Gap 7 mmol/L BUN 22 H (7-17) mg/dL Creatinine 0.89 (0.52-1.04) mg/dL Est GFR (CKD-EPI)AfAm 70 (>60 ml/min/1.73 sqM) Est GFR (CKD-EPI)NonAf 61 (>60 ml/min/1.73 sqM) Glucose 174 H (74-99) mg/dL Calcium 9.4 (8.4-10.2) mg/dL Total Bilirubin 0.5 (0.2-1.3) mg/dL AST 23 (14-36) U/L ALT 12 (4-34) U/L Alkaline Phosphatase 95 (38-126) U/L Total Protein 6.5 (6.3-8.2) g/dL Albumin 3.8 (3.5-5.0) g/dL Amylase 53 (30-110) U/L Lipase 91 (23-300) U/L Urine Color Yellow Urine Appearance Clear (Clear) Urine pH 5.5 (5.0-8.0) Ur Specific [place] 1.014 (1.001-1.035) Urine Protein Negative (Negative) Urine Glucose (UA) Negative (Negative) Urine Ketones Negative (Negative) Urine Blood Small H (Negative) Urine Nitrite Negative (Negative) Urine Bilirubin Negative (Negative) Urine Urobilinogen <2.0 (<2.0) mg/dL Ur Leukocyte Esterase Large H (Negative) Urine RBC 5 (0-5) /hpf Urine WBC 22 H (0-5) /hpf Ur Squamous Epith Cells 5 H (0-4) /hpf Urine Bacteria Rare H (None) /hpf Hyaline Casts 19 H (0-2) /lpf Urine Mucus Rare H (None) /hpf 06/26/21 Range/Units 13:09 WBC (3.8-10.6) k/uL RBC (3.80-5.40) m/uL Hgb (11.4-16.0) gm/dL Hct (34.0-46.0) % MCV (80.0-100.0) fL MCH (25.0-35.0) pg MCHC (31.0-37.0) g/dL RDW (11.5-15.5) % Plt Count (150-450) k/uL MPV Neutrophils % % Lymphocytes % % Monocytes % % Eosinophils % % Basophils % % Neutrophils # (1.3-7.7) k/uL Lymphocytes # (1.0-4.8) k/uL Monocytes # (0-1.0) k/uL Eosinophils # (0-0.7) k/uL Basophils # (0-0.2) k/uL PT 9.6 (9.0-12.0) sec INR 0.9 (<1.2) APTT 24.3 (22.0-30.0) sec Sodium (137-145) mmol/L Potassium (3.5-5.1) mmol/L Chloride (98-107) mmol/L Carbon Dioxide (22-30) mmol/L Anion Gap mmol/L BUN (7-17) mg/dL Creatinine (0.52-1.04) mg/dL Est GFR (CKD-EPI)AfAm (>60 ml/min/1.73 sqM) Est GFR (CKD-EPI)NonAf (>60 ml/min/1.73 sqM) Glucose (74-99) mg/dL Calcium (8.4-10.2) mg/dL Total Bilirubin (0.2-1.3) mg/dL AST (14-36) U/L ALT (4-34) U/L Alkaline Phosphatase (38-126) U/L Total Protein (6.3-8.2) g/dL Albumin (3.5-5.0) g/dL Amylase (30-110) U/L Lipase (23-300) U/L Urine Color Urine Appearance (Clear) Urine pH (5.0-8.0) Ur Specific [place] (1.001-1.035) Urine Protein (Negative) Urine Glucose (UA) (Negative) Urine Ketones (Negative) Urine Blood (Negative) Urine Nitrite (Negative) Urine Bilirubin (Negative) Urine Urobilinogen (<2.0) mg/dL Ur Leukocyte Esterase (Negative) Urine RBC (0-5) /hpf Urine WBC (0-5) /hpf Ur Squamous Epith Cells (0-4) /hpf Urine Bacteria (None) /hpf Hyaline Casts (0-2) /lpf Urine Mucus (None) /hpf - Radiology Data Radiology results: report reviewed (CT abdomen and pelvis shows no significant abnormality. Spondylitic changes. Some spinal stenosis L4-L5 due to facet arthropathy.) Disposition Clinical Impression: Urinary tract infection, Low back pain Disposition: HOME SELF-CARE Condition: Stable Instructions (If sedation given, give patient instructions): Acute Low Back Pain (ED), Urinary Tract Infection in Women (ED) Additional Instructions: Please follow-up with primary care physician in the next couple days for recheck. Return for increased pain, weakness, loss of control of bowel or bladder, fever, worsening symptoms or other concerns. Prescription for antibiotics has been sent to pharmacy. Prescriptions: Sulfamethox-Tmp 800-160Mg [Bactrim DS 800-160 mg] 1 each PO Q12HR #20 tab Is patient prescribed a controlled substance at d/c from ED?: No Referrals: Ada,Emad, MD [Primary Care Provider] - 1-2 days Time of Disposition: 15:18
[2021-06-26 13:17] LABS: Basophils % (A) 0 %; Eosinophils # (A) 0.1 k/uL (0-0.7); Eosinophils % (A) 1 %; HCT 33.5 % (34.0-46.0); HGB 11.4 gm/dL (11.4-16.0); Lymphocytes # (A) 1.2 k/uL (1.0-4.8); Lymphocytes % (A) 22 %; MCH 30.6 pg (25.0-35.0); MCHC 34.2 g/dL (31.0-37.0); MCV 89.7 fL (80.0-100.0); Mean Platelet Volume 7.7; Monocytes # (A) 0.2 k/uL (0-1.0); Monocytes % (A) 5 %; Neutrophils # (A) 3.8 k/uL (1.3-7.7); Neutrophils % (A) 70 %; Platelet Count 179 k/uL (150-450); RBC 3.73 m/uL (3.80-5.40); RDW 13.1 % (11.5-15.5); WBC 5.3 k/uL (3.8-10.6)
[2021-06-26 13:25] LABS: Appearance,Urine Clear (Clear); Bacteria,Urine Rare /hpf; Bilirubin,Urine Negative (Negative); Blood,Urine Small (Negative); Color,Urine Yellow; Glucose,Urine (UA) Negative (Negative); Hyaline Casts,Urine 19 /lpf (0-2); Ketones,Urine Negative (Negative); Leukocyte Esterase,Urine Large (Negative); Mucus,Urine Rare /hpf; Nitrite,Urine Negative (Negative); PH, Urine 5.5 (5.0-8.0); Protein,Urine Negative (Negative); RBC,Urine 5 /hpf (0-5); Specific Gravity,Urine 1.014 (1.001-1.035); Squamous Epithelial Cell,Urine 5 /hpf (0-4); Urobilinogen,Urine <2.0 mg/dL (<2.0); WBC,Urine 22 /hpf (0-5)
[2021-06-26 13:30] LABS: Albumin 3.8 g/dL (3.5-5.0); Calcium 9.4 mg/dL (8.4-10.2); Potassium 4.3 mmol/L (3.5-5.1); Total Bilirubin 0.5 mg/dL (0.2-1.3); Total Protein 6.5 g/dL (6.3-8.2)
[2021-06-26 13:31] LABS: INR 0.9 (<1.2); Partial Thromboplastin Time 24.3 sec (22.0-30.0); Prothrombin Time 9.6 sec (9.0-12.0)
[2021-06-26] MEDS ORDERED: methylPREDNISolone SOD SUCCI 125 MG/2 ML VIAL IV STA (13:41)
[2021-06-26] MEDS ORDERED: FAMOTIDINE 20 MG/2 ML VIAL IV STA (13:41)
[2021-06-26] MEDS ORDERED: diphenhydrAMINE 50 MG/ML 1 ML VIAL IVP STA (13:41)
--- NOTE | 2021-06-26 14:42 | CT ---
EXAMINATION TYPE: CT abdomen pelvis w con DATE OF EXAM: 06/26/2021 COMPARISON: 03/25/2017 HISTORY: Back pain and right lower quadrant pain CT DLP: 844.3 mGycm Automated exposure control for dose reduction was used. CONTRAST: Performed with IV Contrast, patient injected with 100 mL of Isovue 300. There is minimal scarring or subsegmental atelectasis at the lung bases. Heart size is normal. There is no pericardial effusion. There are clips from cholecystectomy. Liver is intact. Bile ducts are not dilated. Spleen pancreas st omach appear intact. There is no adrenal mass. Kidneys show satisfactory contrast opacification. There is no hydronephrosi s. Ureters are not dilated. There is no retroperitoneal adenopathy. Bladder distends smoothly. There is 4 x 2.8 cm cyst on the left ovary. Uterus is anteverted. There is no inguinal hernia. There is no free fluid in the pelvis. Lumbar vertebra have normal alignment. There is disc space narrowing at L4-5 with spur formation. Pos terior elements are intact. There is no compression fracture. Bony pelvis is intact. Hip joints are i ntact. There is no mesenteric edema. There is no ascites or free air. There is no bowel obstruction. Appendi x appears normal. There are small fat containing umbilical hernia measuring 2 cm. IMPRESSION: No significant abnormality. There is clearing of the airspace infiltrates at the lung bases compared to old exam. Spondylotic changes in the lumbar spine. There is some spinal stenosis at L4-5 due to facet arthropat hy. Stenosis similar to old exam.
[2021-06-26 15:00] VITALS: BP 142/75; PULSE 75; RESP 20
[2021-06-26] MEDS ORDERED: traMADol 50 MG STARTER PACK 3 TAB BTL PO STA (15:18)
== END 2021-06-26 15:37 | disposition home or self-care (01) ==
LOC: EC 12:25
DX: M47.816 Spondylosis without myelopathy or radiculopathy, lumbar region (principal); N39.0 Urinary tract infection, site not specified; E11.9 Type 2 diabetes mellitus without complications; E78.5 Hyperlipidemia, unspecified; I10 Essential (primary) hypertension; Z79.84 Long term (current) use of oral hypoglycemic drugs; Z85.3 Personal history of malignant neoplasm of breast; Z90.49 Acquired absence of other specified parts of digestive tract
CPT/HCPCS: 99284; 96374; 96375 ×4; 96361 ×2; 36415; 80053; 82150; 83690; 85025; 85610; 85730; 81001; 87086; 74177; J2270; J1200; J2930; C9113; Q9967

== ENCOUNTER → 2021-08-24 | Outpatient (CLI) | payer MEDICARE, BC | END | disposition home or self-care (01) | LOC: LABWHC1 12:25 | PROVIDERS: ATTEND Internal Medicine | DX: T78.40XD Allergy, unspecified, subsequent encounter (principal); X58.XXXD Exposure to other specified factors, subsequent encounter | CPT/HCPCS: 36415; 82785; 83615; 86003; 86160; 86161; 86162 ==

== ENCOUNTER → 2021-12-05 | Outpatient (CLI) | payer MEDICARE, BC ==
--- NOTE | 2021-12-05 11:32 | XR ---
EXAMINATION TYPE: XR shoulder complete 3 views RT DATE OF EXAM: 12/05/2021 Comparison: None Clinical History: 81-year-old female M25.511 Findings: There is moderate degenerative joint space narrowing with subchondral sclerosis at the acromial clavi cular joint. Subacromial space is preserved. No acute fracture, subluxation, or dislocation seen. Impression: Moderate AC joint OA. No acute osseous abnormality seen.
== END | disposition home or self-care (01) ==
LOC: RADXRMAIN 09:26
PROVIDERS: ATTEND Internal Medicine
DX: M19.011 Primary osteoarthritis, right shoulder (principal)

== ENCOUNTER → 2022-03-08 | Outpatient (CLI) | payer MEDICARE, BC ==
--- NOTE | 2022-03-08 13:55 | MM ---
Reason for exam: additional evaluation requested from prior study. Last mammogram was performed 1 year and 2 months ago. History: Patient is postmenopausal and has history of breast cancer at age 77. Family history of premenopausal breast cancer in sister at age 47. Malignant US biopsy breast VAD RT of the right breast, March 13, 2017. Lumpectomy of the right breast, 2016. Benign US breast aspiration single LT of the left breast, July 22, 2014. Benign right mammotome panel of the right breast, April 09, 2009. Benign excisional biopsy of the left breast, 1989. Physical Findings: A clinical breast exam by your physician is recommended on an annual basis and results should be correlated with mammographic findings. MG 3D Diag Mammo W/Cad RODOLFO Bilateral CC and MLO view(s) were taken. Prior study comparison: January 19, 2021, bilateral MG 3d diag mammo w/cad RODOLFO. December 23, 2019, bilateral MG 3d diag mammo w/cad RODOLFO. The breast tissue is heterogeneously dense. This may lower the sensitivity of mammography. Stable benign calcifications. There is chronic nodularity bilaterally. There is no dominant lesion. No significant new findings when compared with previous films. Results were given to the patient verbally at the time of the exam. ASSESSMENT: Benign, BI-RAD 2 RECOMMENDATION: Follow-up diagnostic mammogram of both breasts in 1 year.
== END | disposition home or self-care (01) ==
LOC: RADMAMWWP 12:52
PROVIDERS: ATTEND Internal Medicine
DX: R92.1 Mammographic calcification found on diagnostic imaging of breast (principal); Z78.0 Asymptomatic menopausal state; Z85.3 Personal history of malignant neoplasm of breast; Z80.3 Family history of malignant neoplasm of breast
CPT/HCPCS: 77066; G0279; 77062

== ENCOUNTER → 2022-06-14 | Outpatient (CLI) | payer MEDICARE, BC ==
--- NOTE | 2022-06-14 15:25 | XR ---
EXAMINATION TYPE: XR lumbar spine 3V, XR Hip Complete 2 views RT DATE OF EXAM: 06/14/2022 Comparison: None Clinical History: 82-year-old female M25.551 PAIN IN RIGHT HIP Findings: LUMBAR SPINE: Mild degenerative disc disease throughout. Moderate degenerative disc disease with a endplate scleros is and spondylosis L4-L5 and L5-S1. Severe hypertrophic facet arthropathy mid to lower lumbar spine. Vertebral body heights are preserved and alignment is maintained. 5 lumbar type vertebral bodies. Cho lecystectomy clips. Right hip: Mild degenerative spurring at the right hip. Osteitis pubis. No acute fracture, subluxation, or dislo cation. Impression: 1. Lumbar spine: Moderate degenerative disc disease and endplate spondylosis lower lumbar spine, ryan re hypertrophic facet arthropathy throughout. No vertebral compression collapse or malalignment. 2. Right hip: Mild right hip OA. Osteitis pubis. No acute osseous abnormality seen.
== END | disposition home or self-care (01) ==
LOC: RADXRMAIN 10:06
PROVIDERS: ATTEND Internal Medicine
DX: M47.817 Spondylosis without myelopathy or radiculopathy, lumbosacral region (principal); M16.11 Unilateral primary osteoarthritis, right hip; M51.37 Other intervertebral disc degeneration, lumbosacral region
CPT/HCPCS: 72100; 73502

== ENCOUNTER → 2022-08-24 | Outpatient (CLI) | payer MEDICARE, BC ==
[~2022-08-24] MED LIST changes: -LIDOCAINE 1% (10MG/ML) FOR IV START INTRADERMA PRN; +REGADENOSON 0.4 MG/5 ML SYRINGE IV PRN
== END | disposition home or self-care (01) ==
LOC: RADNMMAIN 08:03
PROVIDERS: ATTEND Internal Medicine
DX: Z53.9 Procedure and treatment not carried out, unspecified reason (principal)

== ENCOUNTER → 2023-02-02 | Outpatient (CLI) | payer MEDICARE, BC ==
--- NOTE | 2023-02-02 10:45 | FL ---
EXAMINATION TYPE: FL barium swallow DATE OF EXAM: 02/02/2023 10:33 AM COMPARISON: None CLINICAL INDICATION:Female, 82 years old with history of R13.13 PHARYNGEAL DYSPHAGIA; PHH, TECHNIQUE: The procedure was explained and patient history elicited. All patient questions were ans wered prior to start of procedure. Multiple spot fluoroscopic images of the esophagus were obtained a fter the oral ingestion of effervescent crystals and liquid barium as the contrast agent. Fluoroscopic time: 13 seconds Fluoroscopic images: 165 Total DAP 1508.51. FINDINGS: The esophagus demonstrates normal primary and secondary peristalsis. Tertiary peristalsis identified . No focal stricture or ulceration. There are 2 small diverticula emanating from the mid to distal es ophagus, likely pulsion type. Small hiatal hernia with gastroesophageal reflux elicited with Valsalva maneuver. IMPRESSION: 1. Small hiatal hernia with gastroesophageal reflux. 2. 2 small diverticula emanating from the mid to distal esophagus, likely pulsion type. 3. Mild esophageal dysmotility.
== END | disposition home or self-care (01) ==
LOC: RADUSWWP 09:44
PROVIDERS: ATTEND Internal Medicine
DX: K21.9 Gastro-esophageal reflux disease without esophagitis (principal); R13.13 Dysphagia, pharyngeal phase; K22.4 Dyskinesia of esophagus; K44.9 Diaphragmatic hernia without obstruction or gangrene; K57.30 Diverticulosis of large intestine without perforation or abscess without bleeding
CPT/HCPCS: 74220

== ENCOUNTER → 2023-03-07 | Outpatient (CLI) | payer MEDICARE, BC ==
--- NOTE | 2023-03-07 12:32 | XR ---
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 COMPARISON: None TECHNIQUE: The cervical spine was imaged in frontal, bilateral oblique, lateral, flexion, extension, and open-mouth projections. FINDINGS: The osseous structures show no evidence of fracture. Mild reversal of the normal cervical lordosis. T here are osteophytes noted throughout the cervical spine on the anterior and lateral aspects of the v ertebral bodies. Multilevel disc space narrowing most pronounced at C4-C5 and C6-C7. Varying degrees of multilevel neural foraminal stenosis. Pedicles are intact. Soft tissues are within normal limits. The odontoid appears intact. IMPRESSION: 1. No fracture or dislocation. 2. Moderate degenerative disc disease changes of the cervical spine.
== END | disposition home or self-care (01) ==
LOC: RADXRMAIN 11:42
PROVIDERS: ATTEND Internal Medicine
DX: M47.812 Spondylosis without myelopathy or radiculopathy, cervical region (principal); M50.321 Other cervical disc degeneration at C4-C5 level
CPT/HCPCS: 72052

== ENCOUNTER → 2023-03-14 | Outpatient (CLI) | payer MEDICARE, BC ==
--- NOTE | 2023-03-14 10:13 | MM ---
Reason for Exam: Additional evaluation requested from prior study. Last screening mammogram was performed 12 month(s) ago. Patient History: Menarche at age 11. First Full-Term at age 22. Postmenopausal. Breast cancer, age 77. 1989, Benign Excisional Biopsy on the left side. 2016, Lumpectomy on the Right side. 03/13/2017, Malignant Core Biopsy on the right side. 07/22/2014, Benign Cyst Aspiration on the left side. 04/09/2009, Benign Core Biopsy on the right side. Sister had breast cancer, age 47. Prior Study Comparison: 03/13/2017 Right Diagnostic Mammogram, [facility]. 11/05/2017 Bilateral Diagnostic Mammogram, [facility]. 11/21/2018 Bilateral Diagnostic Mammogram, [facility]. 12/23/2019 Bilateral Diagnostic Mammogram, [facility]. 01/19/2021 Bilateral Diagnostic Mammogram, [facility]. 03/08/2022 Bilateral Diagnostic Mammogram, [facility]. Tissue Density: There are scattered fibroglandular densities. Findings: Analyzed By CAD. There are benign-appearing calcifications. Right breast clips. Left breast clip. No new suspicious masses, calcifications or distortions. Overall Assessment: Benign, BI-RAD 2 Management: Screening Mammogram of both breasts in 1 year. . Results were given to the patient verbally at the time of exam. Patient should continue monthly self-breast exams. A clinical breast exam by your physician is recommended on an annual basis. This exam should not preclude additional follow-up of suspicious palpable abnormalities. Note on Vianey scores and lifetime risk: 1. A Vianey score greater than 3% is considered moderate risk. If this is the case, consider specialist referral to assess eligibility for a risk reducing agent. 2. If overall lifetime risk for the development of breast cancer is 20% or higher, the patient may qualify for future screening with alternating mammogram and breast MRI. Electronically signed and approved by: David Marte DO
== END | disposition home or self-care (01) ==
LOC: RADMAMWWP 09:30
PROVIDERS: ATTEND Internal Medicine
DX: R92.8 Other abnormal and inconclusive findings on diagnostic imaging of breast (principal); Z78.0 Asymptomatic menopausal state; Z80.3 Family history of malignant neoplasm of breast
CPT/HCPCS: 77066; G0279; 77062

== ENCOUNTER → 2024-02-28 | Outpatient (CLI) | payer MEDICARE, BC ==
--- NOTE | 2024-02-28 21:33 | US ---
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 Indirect Doppler criteria was utilized. FINDINGS: EXAM MEASUREMENTS: RIGHT: Peak Systolic Velocity (PSV) cm/sec ----- Right CCA: 61.8 ----- Right ICA: 109.6 ----- Right ECA: 104.1 ICA/CCA ratio: 1.8 RIGHT: End Diastole cm/sec ----- Right CCA: 13.1 ----- Right ICA: 32.6 ----- Right ECA: 0.0 LEFT: Peak Systolic Velocity (PSV) cm/sec ----- Left CCA: 93.0 ----- Left ICA: 95.2 ----- Left ECA: 95.2 ICA/CCA ratio: 1.0 LEFT: End Diastole cm/sec ----- Left CCA: 16.0 ----- Left ICA: 22.6 ----- Left ECA: 0.0 VERTEBRALS (direction of flow): Right Vertebral: Antegrade Left Vertebral: Antegrade Rhythm: Normal No significant stenosis IMPRESSION: Mild scattered plaque in the carotid bifurcations bilaterally but no hemodynamically significant sten osis based on color and grayscale imaging as well as Doppler waveform analysis. Criteria for Assigning % of Stenosis / Diameter reduction (Estimation based on the indirect measurements of the internal carotid artery velocities (ICA PSV). 1. Normal (no stenosis)=ICA PSV < 125 cm/s: ratio < 2.0: ICA EDV<40 cm/s. 2. Less than 50% stenosis=ICA PSV < 125 cm/s: ratio < 2.0: ICA EDV<40 cm/s. 3. 50 to 69% stenosis=ICA PSV of 125 to 230 cm/s: ration 2.0 ? 4.0: ICA EDV 40-100 cm/s. 4. Greater than 70% stenosis to near occlusion= ICA PSV > 230 cm/s: ratio > 4.0: ICA EDV > 100 cm/s. 5. Near occlusion= ICA PSV velocities may be low or undetectable: variable ratio and ICA EDV. 6. Total occlusion=unable to detect flow.
== END | disposition home or self-care (01) ==
LOC: RADUSWWP 13:30
PROVIDERS: ATTEND Internal Medicine
DX: I65.23 Occlusion and stenosis of bilateral carotid arteries (principal); I25.10 Atherosclerotic heart disease of native coronary artery without angina pectoris; R25.1 Tremor, unspecified
CPT/HCPCS: 93880

== ENCOUNTER → 2024-03-12 | Outpatient (CLI) | payer MEDICARE, BC ==
[~2024-03-12] MED LIST changes: +DOBUTamine DRIP for NUC MED 500 MG in DEXTROSE/WATER 1 250ML.BAG IV PRN; +DOBUTamine DRIP for NUC MED 500 MG/250 ML BAG IV ONE; -REGADENOSON 0.4 MG/5 ML SYRINGE IV PRN
--- NOTE | 2024-03-12 11:38 | CA ---
Dobutamine Stress Echocardiogram Report Brandi Cahpman Age: 84 Gender: F : 1940 Exam Date: 03/12/2024 09:38 Exam Location: [facility] Ordering Physician: Gauri Caballero MD Referring Physician: Gauri Caballero MD Center Director Lead Teacher: Nicole Montalvo RDCS Technologist: Ht (in): 64 Wt (lb): 150 Procedure CPT: Indication: I65.23,I25.10 ICD-9 Codes: Rhythm: Patient History: Cardiac Medications: SEE LIST Medications in past 24 hours: Contrast: Definity Total Dose (mL): 2 Stress Results Protocol: Dobutamine Peak Dose (???g/kg/min): 30 Duration (min:sec): Atropine:(mg) Target HR: 115 Double Product: [id number] Resting HR: 62 Resting BP: 151 / 77 Peak HR: 140 Peak BP: 199 / 63 Max Predicted HR: 135 104 % Max Predicted HR Stress Summary: The patient's target heart rate was achieved. BP Response: Normal Reason for Termination: Exceeded target heart rate (85% max predicted) Cardiac Symptoms: Test terminated after reaching target heart rate (85% max predicted) ECG Analysis Resting EKG: Normal sinus rhythm, normal ECG Stress EKG: Borderline ST depression - inferio-lateral leads Arrhythmia: None Echo Analysis Base Echo Analysis: Normal resting echocardiogram. Low Echo Anaylsis: Normal wall thickening and motion Peak Echo Analysis: Normal wall motion augmentation with no hypokinesis or dyskinesis Recovery Echo: Normal wall motion MEASUREMENTS (Male/Female) Normal Values CONCLUSIONS 1. Borderline positive electrocardiographic response to dobutamine infusion 2. Normal dobutamine stress echocardiogram with no evidence of stress induced ischemia Dr. Cindy Maxwell MD (Electronically Signed) Final Date: 12 Mar 2024 11:37
== END | disposition home or self-care (01) ==
LOC: RADNMMAIN 08:53
PROVIDERS: ATTEND Internal Medicine
DX: I65.23 Occlusion and stenosis of bilateral carotid arteries (principal); I25.10 Atherosclerotic heart disease of native coronary artery without angina pectoris; R25.1 Tremor, unspecified
CPT/HCPCS: C8930; Q9957; 93351

== ENCOUNTER → 2024-04-21 | Outpatient (CLI) | payer MEDICARE, BC ==
--- NOTE | 2024-04-22 11:43 | MM ---
Reason for Exam: Screening (asymptomatic). Last mammogram was performed 1 year(s) and 1 month(s) ago. Patient History: Menarche at age 11. First Full-Term at age 22. Postmenopausal. Breast cancer, right, age 77. 1989, Benign Excisional Biopsy on the left side. 2016, Lumpectomy on the Right side. 03/13/2017, Malignant Core Biopsy on the right side. 07/22/2014, Benign Cyst Aspiration on the left side. 04/09/2009, Benign Core Biopsy on the right side. Sister had breast cancer, age 47. Prior Study Comparison: 01/19/2021 Bilateral Diagnostic Mammogram, [facility]. 03/08/2022 Bilateral Diagnostic Mammogram, [facility]. 03/14/2023 Bilateral MG 3D diag mammo w/cad RODOLFO, [facility]. Tissue Density: There are scattered areas of fibroglandular density. Findings: Analyzed By CAD. Left breast biopsy clip. Right breast: There is no suspicious group of microcalcifications or new suspicious mass. Benign-appearing calcifications right breast. Left breast: There is no suspicious group of microcalcifications or new suspicious mass. Benign-appearing calcifications left breast. Overall Assessment: Benign, BI-RAD 2 Management: Screening Mammogram of both breasts in [address] [facility] will attempt to contact patient to return for supplemental views and ultrasound if indicated. Patient should continue monthly self-breast exams. A clinical breast exam by your physician is recommended on an annual basis. This exam should not preclude additional follow-up of suspicious palpable abnormalities. Note on Vianey scores and lifetime risk: 1. A Vianey score greater than 3% is considered moderate risk. If this is the case, consider specialist referral to assess eligibility for a risk reducing agent. 2. If overall lifetime risk for the development of breast cancer is 20% or higher, the patient may qualify for future screening with alternating mammogram and breast MRI. Electronically signed and approved by: David Marte DO
== END | disposition home or self-care (01) ==
LOC: RADMAMWWP 13:07
PROVIDERS: ATTEND Internal Medicine
DX: Z12.31 Encounter for screening mammogram for malignant neoplasm of breast (principal); R92.323 Mammographic fibroglandular density, bilateral breasts; Z78.0 Asymptomatic menopausal state; Z80.3 Family history of malignant neoplasm of breast
CPT/HCPCS: 77063; 77067

== ENCOUNTER 2024-11-06 19:09 | Emergency (ER) | payer MEDICARE, BC ==
[2024-11-06 19:30] VITALS: RESP 18; TEMP 98.4
--- NOTE | 2024-11-06 20:04 | ED ---
Abdominal Pain HPI - General Chief Complaint: Abdominal Pain Stated Complaint: stomach pains Time Seen by Provider: 11/06/24 19:39 Source: patient Mode of arrival: ambulatory Limitations: no limitations - History of Present Illness Initial Comments: 84-year-old female presenting with chief complaint of abdominal pain. Patient is complaining of epigastric pain that started earlier today. She states that this feels like a hunger pain. It comes and goes throughout the day and she does not notice any alleviating or aggravating factors. She has a bit of nausea with no vomiting. States that she does get some burning sensation in her throat sometimes. She was seen at urgent care 5 days ago for a bladder infection and has been taking Keflex. She has no flank pain. She states that her burning pain associated with her bladder infection has improved. No fever. No chest pain or difficulty breathing. She has a mild "scratchy" throat, no cough or congestion. No diarrhea. No hematochezia or melena. No blood thinners. No NSAID use. - Related Data Home Medications Medication Instructions Recorded Confirmed Levothyroxine Sodium [Synthroid] 88 mcg PO DAILY 07/25/14 06/26/21 Jaycob/D3/Mag11/Zinc/Climbing Guide/Danial/Bor 1 tab PO DAILY 08/15/16 06/26/21 [Caltrate 600+D Plus Tablet] Glimepiride [Amaryl] 2 mg PO BID 03/29/18 06/26/21 Ascorbic Acid [Vitamin C] 250 mg PO DAILY 02/24/21 06/26/21 Irbesartan/Hydrochlorothiazide 1 tab PO DAILY 02/24/21 06/26/21 [Irbesartan-Hctz 150-12.5 mg Tb] metFORMIN HCL 500 mg PO BID 02/24/21 06/26/21 Rosuvastatin [Crestor] 20 mg PO DAILY 06/26/21 06/26/21 Previous Rx's Medication Instructions Recorded Sulfamethox-Tmp 800-160Mg [Bactrim 1 each PO Q12HR #20 tab 06/26/21 DS 800-160 mg] Famotidine [Pepcid] 20 mg PO DAILY #30 tablet 11/06/24 Allergies Allergy/AdvReac Type Severity Reaction Status Date / Time iodine Allergy Chest Pain Verified 06/26/21 14:54 Penicillins AdvReac Nausea & Verified 11/06/24 19:21 Vomiting & Diarrhea steroids Allergy Nausea & Uncoded 06/26/21 12:38 Vomiting Review of Systems ROS Statement: Those systems with pertinent positive or pertinent negative responses have been documented in the HPI. ROS Other: All systems not noted in ROS Statement are negative. Past Medical History Past Medical History: Cancer, Diabetes Mellitus, Hyperlipidemia, Hypertension Additional Past Medical History / Comment(s): HX OF MENIERE'S, BREAST CANCER History of Any Multi-Drug Resistant Organisms: None Reported Past Surgical History: Breast Surgery, Cholecystectomy Additional Past Surgical History / Comment(s): RODOLFO. CATARACTS, RT BREAST SX, COLONOSCOPY, Past Anesthesia/Blood Transfusion Reactions: No Reported Reaction Past Psychological History: No Psychological Hx Reported Smoking Status: Never smoker Past Alcohol Use History: None Reported Past Drug Use History: None Reported - Past Family History Sister(s) Family Medical History: Cancer Additional Family Medical History / Comment(s): breast, Brother(s) Family Medical History: Cancer, COPD, Coronary Artery Disease (CAD) Additional Family Medical History / Comment(s): lung Daughter(s) Family Medical History: No Reported History Son(s) Family Medical History: No Reported History Mother Family Medical History: CVA/TIA Father Family Medical History: Coronary Artery Disease (CAD) General Exam Limitations: no limitations General appearance: alert, in no apparent distress Head exam: Present: atraumatic, normocephalic, normal inspection Eye exam: Present: normal appearance, EOMI Neck exam: Present: normal inspection. Absent: meningismus Respiratory exam: Present: normal lung sounds bilaterally. Absent: respiratory distress, wheezes, rales, rhonchi, stridor Cardiovascular Exam: Present: regular rate, normal rhythm, normal heart sounds. Absent: systolic murmur, diastolic murmur, rubs, gallop, clicks GI/Abdominal exam: Present: soft. Absent: distended, tenderness, guarding, rebound, rigid Neurological exam: Present: alert, oriented X3 Psychiatric exam: Present: normal affect, normal mood Skin exam: Present: warm, dry Course Vital Signs 11/06/24 11/06/24 11/06/24 19:21 20:29 22:30 Temperature 98.4 F Pulse Rate 68 60 64 Respiratory 18 18 18 Rate Blood Pressure 165/60 140/56 140/60 O2 Sat by Pulse 98 97 99 Oximetry Medical Decision Making - Medical Decision Making EKG shows sinus rhythm ventricular rate 60. KS interval 208. QRS 96. QT 405. QTc 405. Was pt. sent in by a medical professional or institution (, [facility], [employer] WORKER, urgent care, hospital, or [facility]...) When possible be specific @ -No Did you speak to anyone other than the patient for history (EMS, parent, family, police, friend...)? What history was obtained from this source @ -No Did you review nursing and triage notes (agree or disagree)? Why? @ -I reviewed and agree with nursing and triage notes Were old charts reviewed (outside hosp., previous admission, EMS record, old EKG, old radiological studies, urgent care reports/EKG's, [facility] records)? Report findings @ -No old charts were reviewed Differential Diagnosis (chest pain, altered mental status, abdominal pain women, abdominal pain men, vaginal bleeding, weakness, fever, dyspnea, syncope, headache, dizziness, GI bleed, back pain, seizure, CVA, palpatations, mental health, musculoskeletal)? @ -MDM Differential Abdominal Pain Women: Appendicitis, Cholecystitis, diverticulosis, ischemic bowel, pancreatitis, hepatitis, UTI, gastroenteritis, AAA, incarcerated hernia, bowel obstruction, constipation, inflammatory bowel, hepatitis, peptic ulcer disease, splenic infarction, perforated viscus, vulvitis, ovarian torsion, PID, kidney stone, placenta abruption... This is not meant to be an all-inclusive list EKG interpreted by me (3pts min.). @ -As above X-rays interpreted by me (1pt min.). @ -None done CT interpreted by me (1pt min.). @ -CT shows no evidence for acute process. Small hiatal hernia. Colonic diverticulosis. Asymmetrically enlarged left ovary similar to 06/26/2021 with dominant cyst seen on prior. Mild cardiomegaly suspected cardiac valvular calcifications of the aortic and mitral valve. Small umbilical hernia. U/S interpreted by me (1pt. min.). @ -None done What testing was considered but not performed or refused? (CT, X-rays, U/S, labs)? Why? @ -None What meds were considered but not given or refused? Why? @ -None Did you discuss the management of the patient with other professionals (professionals i.e. , PA, BEFORE [employer] DAYCARE WORKER, lab, RT, psych nurse, social sciences research scientist, deputy chief magistrate, teacher, guest relations officer, case management coordinator)? Give summary @ -No Was smoking cessation discussed for >3mins.? @ -No Was critical care preformed (if so, how long)? @ -No Were there social determinants of health that impacted care today? How? (Homelessness, low income, unemployed, alcoholism, drug addiction, transportation, low edu. Level, literacy, decrease access to med. care, long term, rehab)? @ -No Was there de-escalation of care discussed even if they declined (Discuss DNR or withdrawal of care, Hospice)? DNR status @ -No What co-morbidities impacted this encounter? (DM, HTN, Smoking, COPD, CAD, Cancer, CVA, ARF, Chemo, Hep., AIDS, mental health diagnosis, sleep apnea, morbid obesity)? @ -None Was patient admitted / discharged? Hospital course, mention meds given and route, prescriptions, significant lab abnormalities, going to OR and other pertinent info. @ -84-year-old female presenting with chief complaint of epigastric pain. History and physical examination are conducted. Lab work shows no leukocytosis or anemia. BUN 26 creatinine 1.27, this is only mildly elevated from her baseline creatinine of about 1. Negative troponin. Amylase and lipase are WNL. Urine shows no infectious process. No acute process seen on CT of the abdomen and pelvis. Patient was given Pepcid and on reassessment she reports improvement in her symptoms. She is educated on today's findings. She would like to be discharged home. Provided with Pepcid for home. She will follow-up with her PCP. Follow-up with PCP. Report back to ER with any new or worsening symptoms. Discussed return parameters and answered all questions. Patient conveyed verbal understanding and agreed to the plan. I discussed this case in detail with my attending Dr. Perez Undiagnosed new problem with uncertain prognosis? @ -No Drug Therapy requiring intensive monitoring for toxicity (Heparin, Nitro, Insulin, Cardizem)? @ -No Were any procedures done? @ -No Diagnosis/symptom? @ -Abdominal pain Acute, or Chronic, or Acute on Chronic? @ -Acute Uncomplicated (without systemic symptoms) or Complicated (systemic symptoms)? @ -Uncomplicated Side effects of treatment? @ -No Exacerbation, Progression, or Severe Exacerbation? @ -No Poses a threat to life or bodily function? How? (Chest pain, USA, MA, pneumonia, PE, COPD, DKA, ARF, appy, cholecystitis, CVA, Diverticulitis, Homicidal, Suicid al, threat to staff... and all critical care pts) @ -Low likelihood - Lab Data Result diagrams: 11/06/24 20:19 11/06/24 20:19 Lab Results 11/06/24 11/06/24 11/06/24 Range/Units 20:19 20:19 20:19 WBC 6.9 (3.8-10.6) k/uL RBC 4.23 (3.80-5.40) m/uL Hgb 12.6 (11.4-16.0) gm/dL Hct 37.8 (34.0-46.0) % MCV 89.3 (80.0-100.0) fL MCH 29.7 (25.0-35.0) pg MCHC 33.2 (31.0-37.0) g/dL RDW 12.6 (11.5-15.5) % Plt Count 221 (150-450) k/uL MPV 7.1 Neutrophils % 67 % Lymphocytes % 26 % Monocytes % 4 % Eosinophils % 2 % Basophils % 0 % Neutrophils # 4.6 (1.3-7.7) k/uL Lymphocytes # 1.8 (1.0-4.8) k/uL Monocytes # 0.3 (0-1.0) k/uL Eosinophils # 0.1 (0-0.7) k/uL Basophils # 0.0 (0-0.2) k/uL PT 9.8 L (10.0-12.5) sec INR 0.9 (<1.2) APTT 24.4 (22.0-30.0) sec Sodium 138 (137-145) mmol/L Potassium 4.5 (3.5-5.1) mmol/L Chloride 101 (98-107) mmol/L Carbon Dioxide 31 H (22-30) mmol/L Anion Gap 6 mmol/L BUN 26 H (7-17) mg/dL Creatinine 1.27 H (0.52-1.04) mg/dL Est GFR (CKD-EPI)AfAm 45 (>60 ml/min/1.73 sqM) Est GFR (CKD-EPI)NonAf 39 (>60 ml/min/1.73 sqM) Glucose 150 H (74-99) mg/dL Plasma Lactic Acid Elias (0.7-2.0) mmol/L Calcium 10.2 (8.4-10.2) mg/dL Total Bilirubin 0.3 (0.2-1.3) mg/dL AST 19 (14-36) U/L ALT 12 (4-34) U/L Alkaline Phosphatase 101 (38-126) U/L Troponin I (0.000-0.034) ng/mL Total Protein 7.3 (6.3-8.2) g/dL Albumin 4.4 (3.5-5.0) g/dL Amylase 59 (30-110) U/L Lipase 145 (23-300) U/L Urine Color Urine Appearance (Clear) Urine pH (5.0-8.0) Ur Specific [place] (1.001-1.035) Urine Protein (Negative) Urine Glucose (UA) (Negative) Urine Ketones (Negative) Urine Blood (Negative) Urine Nitrite (Negative) Urine Bilirubin (Negative) Urine Urobilinogen (<2.0) mg/dL Ur Leukocyte Esterase (Negative) Urine RBC (0-5) /hpf Urine WBC (0-5) /hpf Ur Squamous Epith Cells (0-4) /hpf 11/06/24 11/06/24 11/06/24 Range/Units 20:19 20:19 20:19 WBC (3.8-10.6) k/uL RBC (3.80-5.40) m/uL Hgb (11.4-16.0) gm/dL Hct (34.0-46.0) % MCV (80.0-100.0) fL MCH (25.0-35.0) pg MCHC (31.0-37.0) g/dL RDW (11.5-15.5) % Plt Count (150-450) k/uL MPV Neutrophils % % Lymphocytes % % Monocytes % % Eosinophils % % Basophils % % Neutrophils # (1.3-7.7) k/uL Lymphocytes # (1.0-4.8) k/uL Monocytes # (0-1.0) k/uL Eosinophils # (0-0.7) k/uL Basophils # (0-0.2) k/uL PT (10.0-12.5) sec INR (<1.2) APTT (22.0-30.0) sec Sodium (137-145) mmol/L Potassium (3.5-5.1) mmol/L Chloride (98-107) mmol/L Carbon Dioxide (22-30) mmol/L Anion Gap mmol/L BUN (7-17) mg/dL Creatinine (0.52-1.04) mg/dL Est GFR (CKD-EPI)AfAm (>60 ml/min/1.73 sqM) Est GFR (CKD-EPI)NonAf (>60 ml/min/1.73 sqM) Glucose (74-99) mg/dL Plasma Lactic Acid Elias 0.9 (0.7-2.0) mmol/L Calcium (8.4-10.2) mg/dL Total Bilirubin (0.2-1.3) mg/dL AST (14-36) U/L ALT (4-34) U/L Alkaline Phosphatase (38-126) U/L Troponin I <0.012 (0.000-0.034) ng/mL Total Protein (6.3-8.2) g/dL Albumin (3.5-5.0) g/dL Amylase (30-110) U/L Lipase (23-300) U/L Urine Color Colorless Urine Appearance Clear (Clear) Urine pH 6.5 (5.0-8.0) Ur Specific [place] 1.006 (1.001-1.035) Urine Protein Negative (Negative) Urine Glucose (UA) Negative (Negative) Urine Ketones Negative (Negative) Urine Blood Trace H (Negative) Urine Nitrite Negative (Negative) Urine Bilirubin Negative (Negative) Urine Urobilinogen <2.0 (<2.0) mg/dL Ur Leukocyte Esterase Negative (Negative) Urine RBC 1 (0-5) /hpf Urine WBC 1 (0-5) /hpf Ur Squamous Epith Cells 1 (0-4) /hpf Disposition Clinical Impression: Abdominal pain Disposition: HOME SELF-CARE Condition: Good Instructions (If sedation given, give patient instructions): Abdominal Pain (ED) Additional Instructions: Follow-up with PCP. Report back to ER with any new or worsening symptoms. Prescriptions: Famotidine [Pepcid] 20 mg PO DAILY #30 tablet Is patient prescribed a controlled substance at d/c from ED?: No Referrals: Gauri Caballero MD [Primary Care Provider] - 1-2 days Time of Disposition: 22:29
[2024-11-06 20:30] LABS: Basophils % (A) 0 %; Eosinophils # (A) 0.1 k/uL (0-0.7); Eosinophils % (A) 2 %; HCT 37.8 % (34.0-46.0); HGB 12.6 gm/dL (11.4-16.0); Lymphocytes # (A) 1.8 k/uL (1.0-4.8); Lymphocytes % (A) 26 %; MCH 29.7 pg (25.0-35.0); MCHC 33.2 g/dL (31.0-37.0); MCV 89.3 fL (80.0-100.0); Mean Platelet Volume 7.1; Monocytes # (A) 0.3 k/uL (0-1.0); Monocytes % (A) 4 %; Neutrophils # (A) 4.6 k/uL (1.3-7.7); Neutrophils % (A) 67 %; Platelet Count 221 k/uL (150-450); RBC 4.23 m/uL (3.80-5.40); RDW 12.6 % (11.5-15.5); WBC 6.9 k/uL (3.8-10.6)
[2024-11-06] MEDS: SODIUM CHLORIDE 0.9% 500 ML 500 ML IV STA (20:32)
[2024-11-06] MEDS: FAMOTIDINE 20 MG/2 ML VIAL IV STA (20:32)
[2024-11-06 20:42] LABS: ALT 12 U/L (4-34); AST 19 U/L (14-36); African American GFR (CKD) 45 (>60 ml/min/1.73 sqM); Albumin 4.4 g/dL (3.5-5.0); Alkaline Phosphatase 101 U/L (38-126); Amylase 59 U/L (30-110); Anion Gap 6 mmol/L; Blood Urea Nitrogen 26 mg/dL (7-17); Calcium 10.2 mg/dL (8.4-10.2); Carbon Dioxide 31 mmol/L (22-30); Chloride 101 mmol/L (98-107); Glucose 150 mg/dL (74-99); Lipase 145 U/L (23-300); Non-African American GFR(CKD) 39 (>60 ml/min/1.73 sqM); Potassium 4.5 mmol/L (3.5-5.1); Sodium 138 mmol/L (137-145); Total Bilirubin 0.3 mg/dL (0.2-1.3); Total Protein 7.3 g/dL (6.3-8.2)
[2024-11-06 20:43] LABS: Appearance,Urine Clear (Clear); Bilirubin,Urine Negative (Negative); Blood,Urine Trace (Negative); Color,Urine Colorless; Glucose,Urine (UA) Negative (Negative); Ketones,Urine Negative (Negative); Leukocyte Esterase,Urine Negative (Negative); Nitrite,Urine Negative (Negative); PH, Urine 6.5 (5.0-8.0); Protein,Urine Negative (Negative); RBC,Urine 1 /hpf (0-5); Specific Gravity,Urine 1.006 (1.001-1.035); Squamous Epithelial Cell,Urine 1 /hpf (0-4); Urobilinogen,Urine <2.0 mg/dL (<2.0); WBC,Urine 1 /hpf (0-5)
[2024-11-06 20:51] LABS: INR 0.9 (<1.2); Partial Thromboplastin Time 24.4 sec (22.0-30.0); Prothrombin Time 9.8 sec (10.0-12.5)
[2024-11-06] MEDS: LORazepam 2 MG/ML INJ IV STA (21:11)
--- NOTE | 2024-11-06 21:49 | CT ---
EXAMINATION TYPE: CT abdomen pelvis wo con DATE OF EXAM: 11/06/2024 9:27 PM COMPARISON: 06/26/2021 CLINICAL INDICATION: Female, 84 years old with history of Epigastric abdominal pain; Epigastric abdom inal pain. TECHNIQUE: Axial CT abdomen pelvis wo con;Sagittal and coronal reformats were created on a separate workstation. Contrast used: mL of , (none if empty) Oral contrast used: without Oral Contrast (none if empty) CT DLP: 493.8 mGycm, Automated exposure control for dose reduction was used. FINDINGS: LOWER CHEST: The heart is mildly enlarged for size. There is dense material in the mitral valve possi ulis enrique replacement changes versus mitral valve annular cusp patient's. Mild consultations aortic valve a nd coronary arteries. ABDOMEN LIVER: Unremarkable GALLBLADDER AND BILE DUCTS: Gallbladder surgically absent. PANCREAS: Unremarkable. SPLEEN: Unremarkable. ADRENAL GLANDS: Unremarkable. KIDNEYS AND URETERS: No evidence of hydronephrosis or renal calculus. The ureters are unremarkable. Extrarenal pelves bilaterally. No obstructing calculi visualized. PELVIS BLADDER: No evidence for wall thickening or mass given limitations of exam. REPRODUCTIVE: Enlarged left ovary compared to the right measuring up to 4.2 x 3.3 cm. Small right ova ry measuring up to 1.9 x 1.5 cm. right ovarian cyst possibly present measuring 1.4 cm. ABDOMEN & PELVIS STOMACH AND BOWEL: Small hiatal hernia, duodenum is unremarkable No evidence of bowel obstruction. Ap pendix is normal. Scattered colonic diverticula. PERITONEUM/RETROPERITONEUM: No evidence of pneumoperitoneum or free fluid. VASCULATURE: Moderate atherosclerotic calcifications are present throughout the abdominal aorta and i ts branches. No evidence of aortic aneurysm. MUSCULOSKELETAL: No acute osseous abnormalities LYMPH NODES: No gross evidence for lymphadenopathy. SOFT TISSUE/ABDOMINAL WALL: Fat-containing umbilical hernia. IMPRESSION: 1. No evidence for acute process. 2. Small hiatal hernia. 3. Colonic diverticulosis. 4. Asymmetrically enlarged left ovary similar to 06/26/2021 with dominant cysts seen on prior. 5. Mild cardiomegaly suspected cardiac valvular calcifications of the aortic and mitral valve. 6. Small umbilical hernia. [facility], , 11/06/2024 9:47 PM
[2024-11-06 22:31] VITALS: BP 140/60; PULSE 64
== END 2024-11-06 22:43 | disposition home or self-care (01) ==
LOC: EC 19:09
DX: K44.9 Diaphragmatic hernia without obstruction or gangrene (principal); K57.30 Diverticulosis of large intestine without perforation or abscess without bleeding; K42.9 Umbilical hernia without obstruction or gangrene; Z88.0 Allergy status to penicillin; Z88.4 Allergy status to anesthetic agent; Z88.1 Allergy status to other antibiotic agents
CPT/HCPCS: 99284; 96374; 96375; 36415; 93005; 80053; 82150; 83605; 83690; 84484; 85025; 85610; 85730; 81001; 74176; J2060; J3490

== ENCOUNTER → 2025-01-20 | Outpatient (CLI) | payer MEDICARE, BC ==
--- NOTE | 2025-01-20 13:26 | BD ---
EXAMINATION TYPE: Axial Bone Density DATE OF EXAM: 01/20/2025 CLINICAL HISTORY: 84 years old Female. 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 3. Menopause before 45: no 51 yrs old RISK FACTORS HISTORY OF: fractures, both feet and tail bone/coccyx MEDICATIONS: tremors meds, bp meds, steroids for arthritis, diabetic, metformin, calcium and d3 Thyroid Medications: yes, synthroid for over 20 yrs EXAM MEASUREMENTS: Bone mineral densitometry was performed using the [employer] System. Bone mineral density as measured about the Lumbar spine is: ----- L1-L4(G/cm2): 1.169 T Score Values are as follows: ----- L1: -0.9 ----- L2: -1.7 ----- L3: 0.8 ----- L4: 0.9 ----- L1-L4: -0.1 Z Score Values are as follows: ----- L1: 0.9 ----- L2: 0.1 ----- L3: 2.6 ----- L4: 2.7 ----- L1-L4: 1.7 Bone mineral density has: Decreased 10.8% since study of: 01.19.2021 Bone mineral density about the R hip (g/cm2): 1.028 Bone mineral density about the L hip (g/cm2): 1.123 T Score values are as follows: -----R Neck: -0.8 -----L Neck: -0.4 -----R Total: 0.2 -----L Total: 0.9 Z Score values are as follows: -----R Neck: 1.5 -----L Neck: 2.0 -----R Total: 2.4 -----L Total: 3.1 Bone mineral density has: Increased 1.2% since study of: 01.19.2021. FRAX%s: The graph provided illustrates a 22.5% chance for a major osteoporotic fx and a 5.3% chance f or the hips probability for fx in 10 years time. IMPRESSION: Normal (Values between +1 and -1 indicate normal bone mass). Consider repeating this study in 5 year s or sooner if there is some new clinical indication. NOTE: T-SCORE=SD OF THE YOUNG ADULT MEAN. [facility], , 01/20/2025 1:24 PM
== END | disposition home or self-care (01) ==
LOC: RADBDWWP 10:01
PROVIDERS: ATTEND Internal Medicine
DX: M81.0 Age-related osteoporosis without current pathological fracture (principal)
CPT/HCPCS: 77080

== ENCOUNTER → 2025-05-25 | Outpatient (CLI) | payer MEDICARE, BC ==
--- NOTE | 2025-05-25 08:17 | MM ---
Reason for Exam: Screening (asymptomatic). Last mammogram was performed 1 year(s) and 1 month(s) ago. Patient History: Menarche at age 11. First Full-Term at age 22. Postmenopausal. Breast cancer, right, age 77. 1989, Benign Excisional Biopsy on the left side. 2016, Lumpectomy on the Right side. 03/13/2017, Malignant Core Biopsy on the right side. 07/22/2014, Benign Cyst Aspiration on the left side. 04/09/2009, Benign Core Biopsy on the right side. Sister had breast cancer, age 47. Prior Study Comparison: 03/08/2022 Bilateral Diagnostic Mammogram, [facility]. 03/14/2023 Bilateral MG 3D diag mammo w/cad RODOLFO, [facility]. 04/21/2024 Bilateral MG 3D screening mammo w/cad, [facility]. Tissue Density: There are scattered areas of fibroglandular density. Findings: Analyzed By CAD. Benign bilateral vascular calcifications. A microclip on either side related to prior biopsies. Unchanged bilateral areas of asymmetric density. Coarse dystrophic calcification redemonstrated central outer right breast. There is no suspicious group of microcalcifications or new suspicious mass in either breast. Overall Assessment: Benign, BI-RAD 2 Management: Screening Mammogram of both breasts in 1 year. Patient should continue monthly self-breast exams. A clinical breast exam by your physician is recommended on an annual basis. This exam should not preclude additional follow-up of suspicious palpable abnormalities. [facility], , 05/25/2025 8:14 AM. Electronically signed and approved by: Shady Honeycutt M.D. Radiologist
== END | disposition home or self-care (01) ==
LOC: RADMAMWWP 07:07
PROVIDERS: ATTEND Internal Medicine
DX: Z12.31 Encounter for screening mammogram for malignant neoplasm of breast (principal); R92.323 Mammographic fibroglandular density, bilateral breasts; R92.1 Mammographic calcification found on diagnostic imaging of breast; Z78.0 Asymptomatic menopausal state; Z85.3 Personal history of malignant neoplasm of breast; Z80.3 Family history of malignant neoplasm of breast
CPT/HCPCS: 77063; 77067